=== PATIENT | female | born 1950 | race Caucasian/White ===

== ENCOUNTER 2017-01-20 08:11 | Inpatient (IN) | payer BC, OTHER ==
[2016-12-10 11:18] VITALS: BMI 42.0
--- NOTE | 2016-12-10 11:56 | PAT Medication Instructions ---
Service Date Dec 10, 2016. Current Home Medication List Atorvastatin (Lipitor), 10 MG PO QPM Beclomethasone Dipropionate (Qvar), 2 PUFFS BID Calcium/Vitamin D (Caltrate 600 Plus *), 1 TAB PO BID Exemestane (Aromasin), 25 MG PO QPM Ibuprofen (Ibuprofen), 400 MG PO Q4 PRN for Pain Rizatriptan Benzoate (Maxalt-Glove Machine Operator), 10 MG PO PRN Venlafaxine Hcl (Effexor), 75 MG PO BID Verapamil Sust Rel (Calan Sr Ext Rel), 240 MG PO BID Medication Instructions For Your Scheduled Surgery Ibuprofen (Ibuprofen), 400 MG PO Q4 PRN for Pain (check with surgeon for instructions) Exemestane (Aromasin), 25 MG PO QPM (check with surgeon/prescribing physician for instructions) - Hold the following medications the morning of surgery: Verapamil Sust Rel (Calan Sr Ext Rel), 240 MG PO BID Calcium/Vitamin D (Caltrate 600 Plus *), 1 TAB PO BID - Take the following medications the morning of surgery with a sip of water: Venlafaxine Hcl (Effexor), 75 MG PO BID Rizatriptan Benzoate (Maxalt-Glove Machine Operator), 10 MG PO PRN Beclomethasone Dipropionate (Qvar), 2 PUFFS BID - Hold the following medications as scheduled the night before surgery: Verapamil Sust Rel (Calan Sr Ext Rel), 240 MG PO BID - Take the following medications as scheduled the night before surgery: Venlafaxine Hcl (Effexor), 75 MG PO BID Rizatriptan Benzoate (Maxalt-Glove Machine Operator), 10 MG PO PRN Beclomethasone Dipropionate (Qvar), 2 PUFFS BID Atorvastatin (Lipitor), 10 MG PO QPM If you have any questions please call us at [phone] (Anny Carrero PA-C) or [phone] or [phone]
[2016-12-10 12:51] LABS: BASO % 0.2 %; BASO ABS # 0.02 K/uL (0-0.2); COMPLETE YES; EOS % 3.2 %; HEMATOCRIT 41.5 % (37-47); IG% 0.2 %; LYMPH % 20.8 %; LYMPH ABS # 1.68 K/uL (1.2-3.4); MEAN CELL VOLUME 88.7 fL (80-100); MEAN CORPUSCULAR HEMOGLOBIN 29.9 pg (25-34); MEAN CORPUSCULAR HGB CONC 33.7 g/dl (32-36); MEAN PLATELET VOLUME 9.3 fL (7.4-10.4); MONO % 8.9 %; NEUT % 66.7 %; PLATELET COUNT 456 K/uL (130-400); RED BLOOD COUNT 4.68 M/uL (4.2-5.4); WHITE BLOOD COUNT 8.07 K/uL (4.8-10.8)
--- NOTE | 2016-12-10 12:59 | DIAGNOSTIC IMAGING REPORT ---
TWO VIEW CHEST CLINICAL HISTORY: Preoperative examination. FINDINGS: PA and lateral chest radiographs are compared to study dated 01/23/15. The cardiomediastinal silhouette is unremarkable. There is chronic elevation of the left hemidiaphragm. The lungs and pleural spaces are clear. There is no pneumothorax. The skeletal structures are osteopenic. The bony thorax appears intact. Cholecystectomy clips are identified in the right upper quadrant. IMPRESSION: No active disease in the chest. Electronically signed by: Iraj Kasper M.D. 12/10/2016 12:57 PM Dictated Date/Time: 12/10/2016 12:56 PM
[2016-12-10 13:01] LABS: URINE APPEARANCE CLEAR (CLEAR); URINE BILIRUBIN NEG (NEG); URINE COLOR YELLOW; URINE EPITHELIAL CELL AUTO >30 /lpf (0-5); URINE NITRITE NEG (NEG); URINE SPECIFIC GRAVITY 1.012 (1.000-1.030); UROBILINOGEN NEG (NEG)
[2016-12-10 13:07] LABS: MANUAL MICROSCOPIC REQUIRED? NO; REVIEW REQ? YES
[2016-12-10 13:08] LABS: PROTHROMBIN TIME (PATIENT) 10.3 SECONDS (9.0-12.0)
[2016-12-10 13:43] LABS: CREATININE 0.64 mg/dl (0.60-1.20); POTASSIUM 3.8 mmol/L (3.5-5.1)
[2016-12-10 13:49] LABS: ZZUR CULT IF INDIC CLEAN CATCH YES
--- NOTE | 2016-12-14 18:46 | HISTORY & PHYSICAL EXAMINATION ---
DATE OF ADMISSION: 01/06/2017 CHIEF COMPLAINT: Left hip pain. HISTORY OF PRESENT ILLNESS: This is a 66-year-old white female, who presents to the office with complaints of left hip pain that has been ongoing for over a year. Pain has become worse over the last 4 months. She previously had a right total hip replacement 9 years ago. She elects to proceed with the same on the left. She has tried oral anti-inflammatories as well as cortisone injections and activity modification without improvement. X-rays have been obtained. She denies any numbness or tingling. PAST MEDICAL HISTORY: Significant for hypertension, elevated cholesterol, asthma, osteoarthritis, history of breast cancer, obesity, migraines and low back pain. PREVIOUS SURGERIES: Arthroplasty of the temporomandibular joint, history of breast reduction, x2, cholecystectomy, Lasik surgery, lumbar laminectomy, oral surgery, history of right total hip replacement 9 years ago and partial mastectomy of the right breast. ALLERGIES: KNOWN ALLERGY TO CODEINE WHICH CAUSES ITCHING. CURRENT MEDICATIONS: Arimidex 1 mg p.o. daily, atorvastatin 10 mg p.o. at bedtime, calcium daily, Celebrex 200 mg p.o. b.i.d., Effexor 75 mg 1-1/2 tablets p.o. b.i.d., Rizatriptan 10 mg p.o. daily and verapamil 240 mg p.o. b.i.d. FAMILY HISTORY: Significant for heart disease and hypertension. SOCIAL HISTORY: The patient is . No tobacco use, no ETOH use. REVIEW OF SYSTEMS: Significant for the above stated conditions, otherwise unremarkable. PHYSICAL EXAMINATION: GENERAL: Well-developed and well-nourished middle aged white female, in no acute distress, sitting on a bed. Alert and oriented. SKIN: Warm and dry with good turgor. No rashes or lesions. No ecchymosis or erythema. HEENT: Normocephalic, atraumatic. Eyes: PERRLA, EOMI. Nares; patent bilaterally without turbinate enlargement. Oropharynx; without erythema or exudate. No lesions noted. Uvula midline. Oral mucosa moist. Fair dentition. Partial bridges are noted. HEART: RRR. No MGR. LUNGS: Clear to auscultation bilaterally. No crackles, rhonchi or wheezing. Good air movement. ABDOMEN: Bowel sounds are present x4, soft, nontender. No organomegaly. Moderately obese. MUSCULOSKELETAL: Left hip has no obvious asymmetry or deformity. She has onset of pain with flexion at around 90 degrees. Essentially no internal rotation. She only gets to neutral before significant pain. External rotation around 20-25 degrees before onset of pain. No pain with palpation over the greater trochanter. She does have discomfort with palpation over the anterior flexion crease. Ambulatory with an antalgic gait. NEUROLOGIC: Gross sensation is intact across the upper and lower extremities by soft touch. Cranial nerves II-XII are intact. DATA: Radiographic images previously obtained show DJD of the left hip. She has significant joint space narrowing as well as subchondral sclerosis and spurring. No evidence of AVN. She does have a small cam lesion. IMPRESSION: Left hip end-stage degenerative joint disease. PLAN: Informed written consent was obtained to proceed with left total hip arthroplasty on 01/06/2017. Postoperative prescriptions for Percocet and Coumadin will be provided at discharge from the hospital. Anticipate discharge to home with home health services. Preoperative lab work, EKG and chest x-ray have been ordered. Medical clearance has been received from Dr. Haines.
--- NOTE | 2017-01-18 17:09 | HISTORY & PHYSICAL EXAMINATION ---
DATE OF ADMISSION: 01/20/2017 PREOPERATIVE HISTORY AND PHYSICAL CHIEF COMPLAINT: Left hip pain. HISTORY OF PRESENT ILLNESS: This 66-year-old white female presents for evaluation of her left hip. She has had left hip pain for over a year. It has become worse over the last 5 months. She previously had a right total hip replacement 9 years ago and elects to proceed with the same on the left. She has tried oral anti-inflammatories as well as cortisone injections and activity modification without improvement. X-rays have been obtained. No numbness or tingling. She was previously scheduled for January 06 but had to cancel secondary to heart issues with her mother. All of those have resolved. The patient is now scheduled for left total hip arthroplasty on 01/20/2017. PAST MEDICAL HISTORY: Significant for hypertension, elevated cholesterol, asthma, osteoarthritis, history of breast cancer, obesity, migraines, and low back pain. PREVIOUS SURGERIES: Arthroplasty of her temporomandibular joint, history of breast reduction, x2, cholecystectomy, Lasix surgery, lumbar laminectomy, oral surgery, history of right total hip replacement 9 years ago, partial mastectomy of the right breast. ALLERGIES: KNOWN ALLERGY TO CODEINE WHICH CAUSES ITCHING. CURRENT MEDICATIONS: Arimidex 1 mg p.o. daily, atorvastatin 10 mg p.o. at bedtime, calcium daily, Celebrex 200 mg p.o. b.i.d., Effexor 75 mg 1 1/2 p.o. b.i.d., Rizatriptan 10 mg p.o. daily, and verapamil 240 mg p.o. b.i.d. FAMILY HISTORY: Significant for heart disease and hypertension. SOCIAL HISTORY: No tobacco use, no ETOH use. . REVIEW OF SYSTEMS: Significant for above-stated conditions, otherwise unremarkable. PHYSICAL EXAMINATION: GENERAL: Well-developed, well-nourished middle aged white female in no acute distress. Sitting on a chair. Alert and oriented. SKIN: Warm and dry with good turgor. No rashes or lesions. No ecchymosis or erythema. HEENT: Normocephalic, atraumatic. Eyes PERRLA, EOMI. Oropharynx without erythema or exudate. No lesions noted. Uvula midline. Oral mucosa moist. Fair dentition. Partial bridges are noted. HEART: RRR. No MGR. LUNGS: Clear to auscultation bilaterally. No crackles, rhonchi or wheezing. Good air movement. ABDOMEN: Obese. Bowel sounds present x4, soft, nontender. No organomegaly. No masses. MUSCULOSKELETAL: Left hip has no obvious asymmetry or deformity. She has onset of pain with flexion of around 90 degrees. Essentially no internal rotation. She only gets to neutral. External rotation continues to be around 20-25 degrees. No pain with palpation over the greater trochanter. There is discomfort with palpation over the anterior flexion crease. Ambulatory with an antalgic gait. NEUROLOGIC: Gross sensation is intact across the upper and lower extremities by soft touch. Peripheral pulses are 2+. Cranial nerves II-XII are intact. IMPRESSION: Left hip end-stage degenerative joint disease. PLAN: Informed written consent was obtained to proceed with left total hip arthroplasty. Postoperative prescriptions for Percocet and Coumadin will be provided at discharge from the hospital. Anticipate discharge to home with home health services for 2 weeks. Lab work, EKG, and chest x-ray have been completed. Medical clearance has been received from Dr. Haines. SANCHEZ
[~2017-01-20] VITALS: Ht 157.5 cm; Wt 105.4 kg
[2017-01-20] VITALS (8 sets, daily range): BP systolic 118–159; BP diastolic 76–88; PULSE 92–102; TEMP 36.4–37.3; O2SAT 92–97; Ht 157.5 cm; Wt 105.4 kg
[~2017-01-20 08:11] MED LIST: ATOR10TA88 PO; BECL0.072; BUPIVACAINE 0.5 % 5 MG/1 ML PF 10ML VIAL ONE; CEFAZOLIN 2000 MG/60 ML D5W 60 ML IV SCH; CLTP PO; EFF/375 PO; EXM/25 PO; LACTATED RINGER'S 1000ML 1,000 ML IV SCH; LACTATED RINGER'S 1000ML 500 ML IV ONE; LACTATED RINGER'S 1000ML IV SCH; MTR/400 PO; RIZA10TA19 PO; ROPIVACAINE 5MG/ML 30 ML 150 MG, BUPIVACAINE/EPINEPHR 0.5% MPF 30 ML, KETOROLAC TROMETH... INFIL SCH; TRANEXAMIC ACID INJ 1,000 MG in SODIUM CHLORIDE 0.9% 100ML 100 ML IV SCH; VERA240T20 PO
--- NOTE | 2017-01-20 08:37 | History & Physical Bridge Note ---
H&P Re-Evaluation Bridge Note: I have examined the patient, reviewed the History & Physical and in the interval since the performance of the History & Physical I have noted the following changes of clinical significance: No changes noted
[2017-01-20] MEDS ORDERED: MIDAZOLAM HCL 1 MG/ML 2ML VIAL ONE (09:32)
[2017-01-20] MEDS ORDERED: FENTANYL CITRATE INJ 50 MCG/1 ML 2 ML VIAL ONE ×2 (09:32→12:18)
[2017-01-20] MEDS ORDERED: PROPOFOL IV EMULSION 10 MG/ML 20 ML VIAL IV ONE ×2 (09:33→11:47)
[2017-01-20] MEDS ORDERED: LIDOCAINE HCL 2% 2 ML VIAL (20MG/ML) ONE (09:33)
[2017-01-20] MEDS ORDERED: ONDANSETRON INJ 2 MG/ML 2 ML VIAL ONE (09:33)
[2017-01-20] MEDS ORDERED: ORTHO JOINT ANESTHETIC ONE (10:38)
[2017-01-20] MEDS ORDERED: POVIDONE-IODINE OP SOLN 30 ML BTL ONE (10:38)
[2017-01-20] MEDS ORDERED: FENTANYL CITRATE INJ 50 MCG/1 ML 2 ML VIAL IV PRN (11:30)
[2017-01-20] MEDS ORDERED: ATROPINE SULFATE 0.1 MG/ML 5ML SYR IV PRN (11:30)
[2017-01-20] MEDS ORDERED: HYDROmorphone INJ 1 MG/ML SYR IV PRN (11:30)
[2017-01-20] MEDS ORDERED: ONDANSETRON INJ 2 MG/ML 2 ML VIAL IV PRN ×2 (11:30→13:15)
[2017-01-20] MEDS ORDERED: EpHEDrine SULFATE INJ 50 MG/ML AMP IV PRN (11:30)
[2017-01-20] MEDS ORDERED: PROMETHAZINE HCL INJ 6.25 MG in SODIUM CHLORIDE 0.9% 50ML 50 ML IV PRN (11:30)
[2017-01-20] MEDS ORDERED: PHENYLEPHRINE 100MCG/ML 5ML SYR ONE (11:32)
[2017-01-20] MEDS ORDERED: PHENYLEPHRINE HCL INJ 10 MG/ML VIAL ONE (11:42)
--- NOTE | 2017-01-20 12:57 | [facility] Post Operative Brief Note ---
Immediate Operative Summary Operative Date Jan 20, 2017. Pre-Operative Diagnosis Left hip end-stage degenerative joint disease Post-Operative Diagnosis Same as preoperative diagnosis Procedure(s) Performed Left Total Hip Arthroplasty, Uncemented Surgeon Dr. Omar Ugarte Babbitt Spinner Surgeon(s) Evert Still PA-C Estimated Blood Loss 250 mL Findings djd/torn labrum Fluids (cc crystalloids) 1200cc Specimens Permanent specimens A: Left femoral head Drains none Anesthesia spinal Complication(s) None Disposition Recovery Room / PACU
--- NOTE | 2017-01-20 13:10 | OPERATIVE REPORT ---
DATE OF OPERATION: 01/20/2017 SURGEON: Dr. Ugarte. POLE SETTER: Evert Still PA-C. SECOND POLE SETTER: Liliane, medical student. PREOPERATIVE DIAGNOSIS: Osteoarthritis, left hip. POSTOPERATIVE DIAGNOSIS: Same. OPERATION PERFORMED: Noncemented left total hip replacement. PERIOPERATIVE SITUATION: Medically cleared female with intractable hip pain, had the previous side done years ago and now wants to have this side done. X-rays reveal joint space narrowing, periarticular Cam lesion and labral tear. An MRI scan revealed substantial joint space narrowing and marked degenerative change. SUMMARY OF IMPLANTS: Size 48 acetabular shell sector cup hole eliminator, 6.5 x 30 cancellous screw, 32 x 48 neutral liner, size 3 standard stem and a 32 mm head +9 neck length. DESCRIPTION OF PROCEDURE: The patient appropriately identified, site verified, consent verified, 3 grams of Ancef confirmed as being given. The patient was carefully placed in the right lateral decubitus position and the left lower extremity prepped and draped in usual routine fashion. Due to her size an appropriate incision was made, deep retractors placed in the subcutaneous tissue and fascia identified. This was then incised under direct vision. Care was taken to protect the sciatic nerve, deep retractors placed appropriately, short external rotators released. The capsule was then teed, the hip dislocated. The femoral neck resected. It was then inverted labrum anteriorly, marked degenerative changes throughout the hip joint. Labrum was excised. Serial reaming carried up to a 48 and a 48 cup impacted into position with appropriate anteversion and inclination. Marginal osteophytes excised and additional 6.5 x 30 screw placed with excellent purchase. The trial liner seated. The femur was then flexed and internally rotated. The proximal femur delivered in the wound and beginning with a canal finder, lateralizing rasp, box office agent and serial broaching up to a 3, a 3 was placed and the neck lengths were between a +5 and a +9, a +9 appeared to be more appropriate and balanced the leg lengths. The hip stability was actually quite good. The hip was then dislocated. The trial implants were removed. The wound was irrigated with Betadine Pulsavac. The permanent hole eliminator and permanent liner seated, permanent stem seated, one more trial reduction carried out and the +9 was appropriate. The wound was irrigated with Betadine and a +9 head placed. The hip reduced. The wound was irrigated one final time and the capsule closed with #2 Vicryl, short external rotators with #2 Vicryl, the deep fascia with interrupted #2 Vicryl and the subcutaneous layer deep with #2 Vicryl, the superficial layer with 2-0 Vicryl and the skin with stainless steel clips. Appropriate dressing applied and the patient transferred to recovery room in satisfactory condition having tolerated the procedure well. Estimated blood loss 250 mL. Crystalloid approximately 1200 mL. DVT prophylaxis per protocol. I attest to the content of the Intraoperative Record and any orders documented therein. Any exceptio ns are noted below.
[2017-01-20] MEDS ORDERED: ACETAMINOPHEN 325 MG TAB PO PRN (13:15)
[2017-01-20] MEDS ORDERED: MAGNESIUM HYDROXIDE SUSP 30 ML UDC PO PRN (13:15)
[2017-01-20] MEDS ORDERED: DiphenhydrAMINE HCL 50 MG/ML VIAL IV PRN (13:15)
[2017-01-20] MEDS ORDERED: BISACODYL 10 MG SUPP PR PRN (13:15)
[2017-01-20] MEDS ORDERED: MoRPHine SULFATE 2 MG/ML CARP IV PRN (13:15)
[2017-01-20] MEDS ORDERED: OXYCODONE HCL IR 5 MG TAB (IMMEDIATE RELEASE) PO PRN (13:15)
[2017-01-20] MEDS ORDERED: METOCLOPRAMIDE HCL INJ 5 MG/ML 2 ML VIAL IV PRN (13:15)
[2017-01-20] MEDS ORDERED: ALUMINUM/MAGNESIUM/SIMETH (MAALOX MAX) 30 ML UDC PO PRN (13:15)
--- NOTE | 2017-01-20 13:28 | OPERATIVE REPORT ---
DATE OF OPERATION: 01/20/2017 PREOPERATIVE DIAGNOSIS: Left hip end-stage degenerative joint disease. POSTOPERATIVE DIAGNOSIS: Same. PROCEDURE: Left total hip arthroplasty using DePuy implants. SURGEON: Dr. Ugarte. CAR JOCKEY: Evert Still PA-C. HISTORY OF PRESENT ILLNESS: This 66-year-old white female presented to the office with complaints of intractable left hip pain. She had tried conservative care measures including physical therapy, activity modification, oral pain medications, and intra-articular injection without lasting relief. She elected to proceed with surgical intervention in hopes of alleviating her pain. Preoperative x-rays were obtained. OPERATION: The patient was administered a spinal anesthetic and then taken to the operating room where she was given sedation. She was prepped and draped in the usual sterile fashion. Please see Dr. Ugarte's operative report for specifics of the procedure. I was present for the entire case from initial patient positioning through final wound closure. Assistance was provided in tissue retraction, hemostasis, trial implant placement, final implant placement, and final wound closure. The patient was taken to the recovery room in satisfactory condition. I attest to the content of the Intraoperative Record and any orders documented therein. Any exceptio ns are noted below.
--- NOTE | 2017-01-20 13:41 | Anesthesiology Progress Note ---
Anesthesia Post Op Note Date & Time Jan 20, 2017 at 13:41 Vital Signs Pain Intensity: 0 Vital Signs Past 12 Hours Date Time Temp Pulse Resp B/P Pulse Ox O2 Delivery O2 Flow Rate FiO2 01/20/17 13:15 94 16 126/91 98 Nasal Cannula 2 01/20/17 13:05 89 16 136/66 98 Mask 10 01/20/17 12:58 36.9 93 16 138/78 98 Mask 10 01/20/17 08:38 36.9 102 22 159/82 95 Room Air Notes Mental Status: alert / awake / arousable, participated in evaluation Pt Amnestic to Procedure: Yes Nausea / Vomiting: adequately controlled Pain: adequately controlled Airway Patency, RR, SpO2: stable & adequate BP & HR: stable & adequate Hydration State: stable & adequate Neuraxial Anesthesia: was administered, sensory block is resolving Anesthetic Complications: no major complications apparent
--- NOTE | 2017-01-20 13:45 | PROGRESS NOTE ---
DATE: 01/20/2017 SUBJECTIVE: Postop check status post left total hip replacement. At this point in time the patient has no chest pain, shortness of breath, fevers, chills, nausea, vomiting or headache. Vital signs are stable. She is afebrile. The femoral sciatic nerve function is excellent. Wound dressing clean, dry and intact. X-ray is pending. ASSESSMENT: Overall, doing well. Continue with care pathway, transfer to the floor relatively quickly as she is doing well. Neurovascular check and vital signs.
--- NOTE | 2017-01-20 13:50 | PROGRESS NOTE ---
DATE: 01/20/2017 Postop x-ray look excellent, AP pelvis and hips reveals well fixed, well aligned hip replacement on the left and no issues with the hip replacement on the right.
--- NOTE | 2017-01-20 13:56 | DIAGNOSTIC IMAGING REPORT ---
PELVIS 1 OR 2 VIEW ROUTINE CLINICAL HISTORY: Postop total hip arthroplasty COMPARISON STUDY: 05/16/2014 FINDINGS: Again evident is evidence of a prior total right hip arthroplasty. There is now evidence for total left hip arthroplasty. The acetabular and femoral components appear well seated. There is air in the soft tissues consistent with recent surgery. There are no acute fractures. There is no dislocation. IMPRESSION: Interval total left hip arthroplasty. Electronically signed by: Dayne Hinkle M.D. 01/20/2017 1:55 PM Dictated Date/Time: 01/20/2017 1:54 PM
[2017-01-20] MEDS ORDERED: RIZATRIPTAN BENZOATE 10 MG TAB PO PRN (15:15)
[2017-01-20] MEDS ORDERED: MoRPHine SULFATE 4 MG/ML 1 ML CARP\\VIAL IV PRN (15:15)
[2017-01-20] MEDS ORDERED: D5W AND 1/2NSS + 20MEQ KCL 1,000 ML IV SCH (16:00)
[2017-01-20] MEDS ORDERED: WARF2TAB PO (16:01)
[2017-01-20] MEDS ORDERED: OXYC-57 PO (16:01)
[2017-01-20] MEDS: ACETAMINOPHEN IV 1,000 MG in EMPTY BAG 0 ML IV SCH ×2 (16:26→23:48)
[2017-01-20] MEDS: KETOROLAC TROMETHAMINE 30 MG/ML VIAL IV. SCH ×2 (16:27→22:05)
[2017-01-20] MEDS ORDERED: WARFARIN SOD 5 MG TAB PO ONE (17:00)
[2017-01-20] MEDS: FERROUS GLUCONATE 324 MG TAB PO SCH (17:14)
[2017-01-20] MEDS: CEFAZOLIN IV 2,000 MG in DEXTROSE 5% 50ML 50 ML IV SCH (17:19)
[2017-01-20] MEDS ORDERED: TRANEXAMIC ACID INJ 1,000 MG in SODIUM CHLORIDE 0.9% 100ML 100 ML IV SCH (19:30)
[2017-01-20] MEDS: BECLOMETHASONE HFA 40 MCG INHALER INH SCH (20:48)
[2017-01-20] MEDS: VERAPAMIL HCL 240 MG TABCR PO SCH (20:48)
[2017-01-20] MEDS: DOCUSATE SODIUM 100 MG CAP PO SCH (20:49)
[2017-01-20] MEDS: VENLAFAXINE HCL 37.5 MG TAB PO SCH (20:51)
[2017-01-20] MEDS ORDERED: ATORVASTATIN 10 MG TAB PO SCH (21:00)
[2017-01-21] MEDS: CEFAZOLIN IV 2,000 MG in DEXTROSE 5% 50ML 50 ML IV SCH (01:56)
[2017-01-21] MEDS: KETOROLAC TROMETHAMINE 30 MG/ML VIAL IV. SCH ×2 (03:00→11:05)
[2017-01-21 03:15] VITALS: BP 132/88; PULSE 91; TEMP 36.4; O2SAT 93
--- NOTE | 2017-01-21 07:07 | PROGRESS NOTE ---
DATE: 01/21/2017 SUBJECTIVE: Postop day 1 status post left total hip replacement. At this point in time the patient denies any chest pain, shortness of breath, fevers, chills, headache, nausea or vomiting. Vital signs are stable. She is afebrile. She has been tachycardic the entire time, that is her I think her baseline. Her admission pulse was in the low 100s. Abdomen soft, nontender. Both calves nontender. Neurovascular check femoral and sciatic nerve is excellent. Hip movement is excellent. She is ambulatory. Laboratory work this morning is pending. ASSESSMENT: Overall, doing well. Potential discharge later this afternoon if she does well with PT, OT. Discharge on 4 mg of Coumadin today if INR is less than 1.4. Check INR on Wednesday. Did give her prescriptions for pain medication. Follow up in the office in 2 weeks. PT, OT, social service consults.
--- NOTE | 2017-01-21 07:10 | DISCHARGE SUMMARY ---
POTENTIAL DATE OF DISCHARGE: 01/21/2017; if not it will be 01/22/2017 CHIEF COMPLAINT: Left hip pain. HISTORY OF PRESENT ILLNESS: 66-year-old female admitted for elective left total hip replacement. At this point in time she has done well perioperatively. She denies chest pain, shortness of breath, fever or chills, headache, nausea or vomiting. Vital signs are stable. She is afebrile. PAST MEDICAL HISTORY: Remarkable for hypertension, elevated cholesterol, asthma, osteoarthritis, history of breast cancer, obesity, migraines and low back pain. PAST SURGICAL HISTORY: TMJ surgery, breast reduction, x2, cholecystectomy, Lasik surgery, lumbar laminectomy, oral surgery, right total hip replacement nine years ago, partial mastectomy of the right breast. ALLERGIES: CODEINE WHICH CAUSES ITCHING. PREADMISSION MEDICATIONS: Arimidex, atorvastatin, calcium, Celebrex, Effexor, rizatriptan and verapamil. She will discontinue Celebrex. Continue all of the other medications. Will add p.r.n. Percocet and Coumadin. Discharge on 4 mg today if INR less than 1.4 and adjust as needed to keep INR 1.8-2.2. FAMILY HISTORY: Remarkable for heart disease and hypertension. SOCIAL HISTORY: She is . Denies alcohol or tobacco use. REVIEW OF SYSTEMS: No chest pain, shortness of breath, fever or chills. ASSESSMENT: Overall, doing well and was mobilizing well. She is a little hesitant to leave today; however, if she does well with PT, OT today she will try to do that. She will have PT, OT and social service assessments. If she does well, she will be discharged today. Follow up in the office in 2 weeks. Coumadin per INR nomogram today and if she is discharged again discharge on 4 mg a day if INR is less than 1.4.
[2017-01-21 07:16] LABS: BASO % 0.1 %; BASO ABS # 0.01 K/uL (0-0.2); COMPLETE YES; HEMATOCRIT 36.1 % (37-47); IG% 0.1 %; LYMPH % 8.2 %; LYMPH ABS # 0.98 K/uL (1.2-3.4); MEAN CELL VOLUME 90.7 fL (80-100); MEAN CORPUSCULAR HEMOGLOBIN 30.2 pg (25-34); MEAN CORPUSCULAR HGB CONC 33.2 g/dl (32-36); MEAN PLATELET VOLUME 9.5 fL (7.4-10.4); MONO % 11.4 %; NEUT % 80.2 %; PLATELET COUNT 346 K/uL (130-400); RED BLOOD COUNT 3.98 M/uL (4.2-5.4); WHITE BLOOD COUNT 12.01 K/uL (4.8-10.8)
[2017-01-21 07:18] VITALS: BP 128/77; PULSE 86; TEMP 36.7; O2SAT 95
[2017-01-21 07:25] LABS: PROTHROMBIN TIME (PATIENT) 10.7 SECONDS (9.0-12.0)
[2017-01-21] MEDS ORDERED: DEXAMETHASONE INJ 10 MG in SYRINGE 0 ML IV SCH (07:30)
[2017-01-21] MEDS: ACETAMINOPHEN IV 1,000 MG in EMPTY BAG 0 ML IV SCH (07:36)
[2017-01-21 07:47] LABS: BUN/CREATININE RATIO 20.5 (10-20); CALCIUM 8.4 mg/dl (8.5-10.1); CREATININE 0.78 mg/dl (0.60-1.20); POTASSIUM 4.2 mmol/L (3.5-5.1)
--- NOTE | 2017-01-21 07:47 | Anesthesiology Progress Note ---
Anesthesia Post Op Note Date & Time Jan 21, 2017 at 07:47 Vital Signs Vital Signs Past 12 Hours Date Time Temp Pulse Resp B/P Pulse Ox O2 Delivery O2 Flow Rate FiO2 01/21/17 07:18 36.7 86 16 128/77 95 Room Air 01/21/17 03:15 36.4 91 16 132/88 93 Room Air 01/20/17 23:41 36.7 101 18 118/76 96 Room Air 01/20/17 19:54 36.9 101 18 118/77 93 Room Air Notes Mental Status: alert / awake / arousable, participated in evaluation Pt Amnestic to Procedure: Yes Nausea / Vomiting: adequately controlled Pain: adequately controlled Airway Patency, RR, SpO2: stable & adequate BP & HR: stable & adequate Hydration State: stable & adequate Neuraxial Anesthesia: was administered, sensory block resolved Anesthetic Complications: no major complications apparent
--- NOTE | 2017-01-21 08:53 | Discharge Instructions ---
Discharge Instructions Admission Reason for Admission: Left Hip Degenerative Joint Disease Discharge Discharge Diagnosis / Problem: left hip s/p total hip replacement Discharge Goals Goal(s): Decrease discomfort, Improve function, Increase independence Activity Recommendations Activity Limitations: as noted below Lifting Limitations: gradually increase as tolerated Exercise/Sports Limitations: until after follow-up appointment Shower/Bathe: keep incision dry Driving or Machine Use: No driving until cleared by Dr. Ugarte Weightbearing Status: Left weightbearing (as tolerated) . Instructions / Follow-Up Instructions / Follow-Up New Medicine: * You will likely be taking one or more of these medicines: 1. Percocet - Take, as directed, when you need it, every four to six hours to control your pain. 2. Coumadin - Thins your blood to lessen the chance of forming a blood clot. The dose of this is different for each person and is based on your blood tests that are done twice a week. * The most common side effects of pain medicine and iron are nausea and constipation. If nausea or constipation is too much of a problem or if you have any questions about your new medicines or doses, call [facility] at . We will try to help you manage these issues. VERY IMPORTANT TO READ AND REVIEW" Blood Clots and Blood Thinning Medicine: * You are given Coumadin during the immediate post-operative period to lessen the risk of blood clots forming in your legs and/or lungs. Coumadin is usually given for six weeks after surgery. * The prescription is for 2 mg tablets. At discharge, you should understand your dose and take it all at the same time every day, preferably after dinner. * You need to get your blood checked 1 - 2 times per week for six weeks, or as directed. * If your dose needs to change, we will call you. Do not take your medication on the day of the blood test until we call you. * If you don't hear from us after your blood draws, keep taking the same dose. Pain: * The immediate post-operative period after hip replacement surgery is often quite painful. * You are given a prescription for pain medicine. You should take it, as directed, when you need it, especially before physical therapy and before going to bed. Pain that interferes with sleep is very common and can last several months. * You will likely need pain medicine for the first two to four weeks. It will not stop all of the pain. The pain will lessen and as you feel better, you may change to milder pain medicine such as Tylenol. * The most common side effects of pain medicine are nausea and constipation, so don't take more than you need. Physical Therapy: * Follow the "Hip Precautions Instructions." * In some cases, the social worker clinical at the hospital will arrange to have a therapist come to your house for the first couple of weeks to help you learn these skills. * You need to practice on your own or with the help of a family member as needed. * When you learn these skills, most of the therapy can be done on your own. Home Exercise: * You were shown a series of exercises in the hospital. Do these exercises three to four times each day including the exercises you were shown in physical therapy. Walking: * Get up and walk several times each day. For the first four weeks, try not to stand or walk for more than one hour at a time. If you do stand or walk for more than one hour, you will not hurt anything, but your leg will likely swell. * As you feel comfortable, you may change from the walker or crutches to a cane and then to independent walking. SELF CARE INSTRUCTIONS AFTER TOTAL HIP REPLACEMENT Until the incision and soft tissues around your hip have healed, there is a possibility that the hip prosthesis could dislocate. A. Observe the following precautions to prevent dislocation: 1. Don't bend your hip greater than 90 degrees. 2. Avoid crossing your legs or ankles while standing or lying. 3. Sit with your feet placed 6 inches apart. 4. When sitting, keep your knees below your hips. Sit on a firm surface, avoid deep, soft chairs and couches. Use an elevated toilet seat in the bathroom. 5. Don't bend over at the waist. Use a long handled shoehorn and a sock aid to help you put on your shoes and socks. A cloth doffer can help you picking tech objects that are too high or too low to reach. 6. Keep car riding to a minimum for at least one month after surgery. B. Your balance may be shaky for a while. Use crutches or a walker until directed by your doctor. C. Use hand rails when walking on stairs. D. Wear low heeled shoes with non-slip soles. E. Be sure that your floors are free of things that could trip you - throw rugs , electrical cords, small objects. Avoid wet and waxed floors, especially with crutches and canes. F. Try to walk several times a day with rest periods between. G. Continue with all the exercises taught to you in the hospital. Again, make walking a part of your daily routine. VERY IMPORTANT TO READ AND REVIEW A. Take Coumadin, or Lovenox (blood thinning medications) as directed by your doctor. If you are on Coumadin, have a pro-time (blood test) drawn according to your doctor's instructions. This will tell the doctor how well the Coumadin is thinning your blood. B. There are a few signs you need to watch for after you are home. If you notice any of the followin. Increased severe hip pain. Some pain is expected especially when you exercise. 2. Increased swelling in your leg or knee; pain or swelling of the calf muscle in either lower leg. 3. Any fluid drainage from the incision. 4. Shortness of breath or chest pain. TEDs/Elastic Stockings: * The white elastic stockings help limit swelling and prevent blood clots from forming in your legs. The more you wear them, the more they work. * Wear them for six weeks. Prevention of Infection: * Take antibiotics one hour before any dental cleaning, dental work, urological procedure, gastrointestinal procedure or any invasive surgery in order to prevent your new joint from getting infected. * You may get the antibiotics from the doctor performing the procedure or we will call in a prescription to the pharmacy of your choice. Call the office for a prescription at least 2 days prior to your appointment. Things to Watch For: * Drainage from the incision site that occurs more than one week after your surgery. * Severely increased leg pain or swelling. * Increased redness at the incision site. * Fever above 101 degrees Fahrenheit. * Unusual chest pain or shortness of breath. * Unusual pain or burning with urination. Current Hospital Diet Patient's current hospital diet: AHA Diet (Heart Healthy) Discharge Diet Recommended Diet: AHA Diet (Heart Healthy) Procedures Procedures Performed: Left Total Hip Arthroplasty, Uncemented Pending Studies Studies pending at discharge: no Laboratory Results Lipid Panel Test 10/30/16 09:41 Range/Units Triglycerides Level 169 H 0-150 mg/dl Cholesterol Level 198 0-200 mg/dl HDL Cholesterol 80 mg/dl Cholesterol/HDL Ratio 2.5 LDL Cholesterol, Calculated 84 mg/dl Medical Emergencies . Who to Call and When: Medical Emergencies: If at any time you feel your situation is an emergency, please call 911 immediately. . Non-Emergent Contact Non-Emergency issues call your: Primary Care Provider, Surgeon Call Non-Emergent contact if: temperature is above 100.5, wound has increased drainage, wound has increased redness, wound has increased pain, you have any medication questions . "Provider Documentation" section prepared by Evert Still PA-C. VTE Core Measure Inpt VTE Proph given/why not?: Warfarin (Coumadin), Alex Stockings, SCD's [place] Drug Monitoring Program Search Results: patient reviewed within database
[2017-01-21] MEDS ORDERED: MULTIVITAMIN TAB PO SCH (09:00)
[2017-01-21] MEDS ORDERED: PANTOprazole SOD 40 MG TAB PO SCH (09:00)
--- NOTE | 2017-01-21 09:25 | Orthopedic Progress Note ---
Orthopedic Progress Note Date of Service Jan 21, 2017. Subjective Post OP Day: 1 Reports: feeling well, Denies: SOB, calf pain, chest pain, complaints, light headedness, nausea / vomiting Objective calves soft nontender, N/V intact, hip located, capillary refill less than 2 sec., dressing C/D/I, incision C/D/I, A&O x3, toes mobile, CMS intact minimal drainage on dressings sitting in a chair, stands well Date Time Temp Pulse Resp B/P Pulse Ox O2 Delivery O2 Flow Rate FiO2 01/21/17 07:18 36.7 86 16 128/77 95 Room Air 01/21/17 03:15 36.4 91 16 132/88 93 Room Air 01/20/17 23:41 36.7 101 18 118/76 96 Room Air 01/20/17 19:54 36.9 101 18 118/77 93 Room Air 01/20/17 19:35 93 Room Air 01/20/17 16:46 37.3 100 18 122/78 95 Nasal Cannula 1.0 01/20/17 16:08 Nasal Cannula 2.0 01/20/17 15:45 36.6 97 16 130/82 97 Nasal Cannula 2.0 01/20/17 14:32 92 19 137/88 92 Nasal Cannula 2.0 01/20/17 14:14 Nasal Cannula 2.0 01/20/17 13:45 36.4 92 16 142/85 97 Nasal Cannula 2.0 01/20/17 13:15 94 16 126/91 98 Nasal Cannula 2 01/20/17 13:05 89 16 136/66 98 Mask 10 01/20/17 12:58 36.9 93 16 138/78 98 Mask 10 Laboratory Results 24 Hours: Test 01/21/17 06:32 White Blood Count 12.01 K/uL Red Blood Count 3.98 M/uL Hemoglobin 12.0 g/dL Hematocrit 36.1 % Mean Corpuscular Volume 90.7 fL Mean Corpuscular Hemoglobin 30.2 pg Mean Corpuscular Hemoglobin Concent 33.2 g/dl Platelet Count 346 K/uL Mean Platelet Volume 9.5 fL Neutrophils (%) (Auto) 80.2 % Lymphocytes (%) (Auto) 8.2 % Monocytes (%) (Auto) 11.4 % Eosinophils (%) (Auto) 0.0 % Basophils (%) (Auto) 0.1 % Neutrophils # (Auto) 9.64 K/uL Lymphocytes # (Auto) 0.98 K/uL Monocytes # (Auto) 1.37 K/uL Eosinophils # (Auto) 0.00 K/uL Basophils # (Auto) 0.01 K/uL Prothromb Time International Ratio 1.0 Prothrombin Time 10.7 SECONDS Assessment & Plan Assessment: Left hip s/p total hip arthroplasty Plan: PT/OT today dressing changed by me today- wound looks good continue total hip precautions pt anticipates discharge to home today vitals and labs reviewed-no concerns Discharge Planning Discharge Planning: home with home health Pain Management: Percocet DVT Prophylaxis: TEDs, SCDs, Coumadin
[2017-01-21] MEDS: FERROUS GLUCONATE 324 MG TAB PO SCH ×2 (09:31→12:49)
[2017-01-21] MEDS: DOCUSATE SODIUM 100 MG CAP PO SCH (09:32)
[2017-01-21] MEDS: VENLAFAXINE HCL 37.5 MG TAB PO SCH (09:34)
[2017-01-21] MEDS: BECLOMETHASONE HFA 40 MCG INHALER INH SCH (09:35)
[2017-01-21 09:37] VITALS: BP 121/80; PULSE 99
[2017-01-21] MEDS: VERAPAMIL HCL 240 MG TABCR PO SCH (09:38)
[2017-01-21 11:55] VITALS: BP 145/92; PULSE 92; TEMP 37; O2SAT 93
[2017-01-21] MEDS ORDERED: WARFARIN SOD 5 MG TAB PO SCH (16:00)
== END 2017-01-21 13:15 | disposition home health service (06) | DRG 470 ==
LOC: ENRESERVDT → ENRESERVTM → C.ACU 08:11 → C.3E 08:40
PROVIDERS: ADMIT Physical Medicine & Rehabilitation Sports Medicine; ATTEND Physical Medicine & Rehabilitation Sports Medicine
PROC: 0SRB0JA Replacement of Left Hip Joint with Synthetic Substitute, Uncemented, Open Approach (ICD-10-PCS; principal; 2017-01-20 10:30)
DX: M16.12 Unilateral primary osteoarthritis, left hip (principal); Z68.41 Body mass index [BMI] 40.0-44.9, adult; I10 Essential (primary) hypertension; E78.00 Pure hypercholesterolemia, unspecified; J45.909 Unspecified asthma, uncomplicated; M19.90 Unspecified osteoarthritis, unspecified site; Z85.3 Personal history of malignant neoplasm of breast; G43.909 Migraine, unspecified, not intractable, without status migrainosus; Z88.5 Allergy status to narcotic agent; Z79.899 Other long term (current) drug therapy; Z96.641 Presence of right artificial hip joint; Z90.49 Acquired absence of other specified parts of digestive tract; Z90.11 Acquired absence of right breast and nipple; E66.9 Obesity, unspecified; Z82.49 Family history of ischemic heart disease and other diseases of the circulatory system

== ENCOUNTER → 2017-01-25 | Outpatient (CLI) | payer OTHER ==
[~2017-01-25] MED LIST changes: -BUPIVACAINE 0.5 % 5 MG/1 ML PF 10ML VIAL ONE; -CEFAZOLIN 2000 MG/60 ML D5W 60 ML IV SCH; -LACTATED RINGER'S 1000ML 1,000 ML IV SCH; -LACTATED RINGER'S 1000ML 500 ML IV ONE; -LACTATED RINGER'S 1000ML IV SCH; -MTR/400 PO; +OXYC-57 PO; -ROPIVACAINE 5MG/ML 30 ML 150 MG, BUPIVACAINE/EPINEPHR 0.5% MPF 30 ML, KETOROLAC TROMETH... INFIL SCH; -TRANEXAMIC ACID INJ 1,000 MG in SODIUM CHLORIDE 0.9% 100ML 100 ML IV SCH; +WARF2TAB PO
[2017-01-25 14:12] LABS: INR 1.2 (0.9-1.1); PROTHROMBIN TIME (PATIENT) 12.4 SECONDS (9.0-12.0)
== END | disposition home or self-care (01) ==
LOC: C.LABSPEC 13:35
PROVIDERS: ATTEND Physical Medicine & Rehabilitation Sports Medicine
DX: Z79.01 Long term (current) use of anticoagulants (principal)

== ENCOUNTER → 2017-01-28 | Outpatient (CLI) | payer OTHER ==
[2017-01-28 10:14] LABS: PROTHROMBIN TIME (PATIENT) 21.9 SECONDS (9.0-12.0)
--- NOTE | 2017-01-30 11:35 | CODING QUERY NO DIAGNOSIS ---
Valid Physician Order Needed A valid physician order must be submitted in order to properly bill for the service(s) provided, including date of service(s), valid diagnosis, and physician signature. If these tests are done on a recurring basis the original physican order must be submitted in order to code and bill for the service(s) provided. Please fax us the original, signed physician order so that we may expedite billing to [phone] DOS 01/28/17 * PT/INR ORDERED BY DR. SPENCE Thank you [facility] Information Management
--- NOTE | 2017-02-27 06:36 | CODING QUERY NO DIAGNOSIS ---
TREATMENT RENDERED WITHOUT A DIAGNOSIS To promote full compliance with coding requirements relating to patient care, physician participation is requested in all cases of pass worker uncertainty. Please assist us with providing a diagnosis/symptom for the test(s) below: A diagnosis/symptom was not documented on your Order. A valid diagnosis/symptom is required to bill all insurances. Please remember that we are unable to code a diagnosis of rule out, probable, possible, questionable, or suspected. Tests that require a diagnosis: DOS: 01/28/17 * PT/INR DIAGNOSIS: Provider Signature: Date: Thank you [facility] Information Management Once completed, please kindly fax back to [phone] For questions please call [phone]
== END | disposition home or self-care (01) ==
LOC: C.LABSPEC 09:34
PROVIDERS: ATTEND Physical Medicine & Rehabilitation Sports Medicine
DX: Z51.81 Encounter for therapeutic drug level monitoring (principal); Z79.01 Long term (current) use of anticoagulants; Z47.1 Aftercare following joint replacement surgery; Z96.643 Presence of artificial hip joint, bilateral

== ENCOUNTER → 2017-03-01 | Outpatient (CLI) | payer OTHER ==
[~2017-03-01] MED LIST changes: +ATOR10TA82 PO; -ATOR10TA88 PO
== END | disposition home or self-care (01) ==
LOC: C.RDSM 14:24
PROVIDERS: ATTEND Physical Medicine & Rehabilitation Sports Medicine
DX: M25.552 Pain in left hip (principal)

== ENCOUNTER → 2017-04-30 | Outpatient (CLI) | payer OTHER ==
[2017-04-30 12:31] LABS: BASO % 0.3 %; BASO ABS # 0.02 K/uL (0-0.2); COMPLETE YES; EOS % 4.3 %; HEMATOCRIT 45.8 % (37-47); IG% 0.1 %; LYMPH % 25.2 %; LYMPH ABS # 1.76 K/uL (1.2-3.4); MEAN CELL VOLUME 88.2 fL (80-100); MEAN CORPUSCULAR HEMOGLOBIN 27.9 pg (25-34); MEAN CORPUSCULAR HGB CONC 31.7 g/dl (32-36); MONO % 9.5 %; NEUT % 60.6 %; PLATELET COUNT 395 K/uL (130-400); RED BLOOD COUNT 5.19 M/uL (4.2-5.4); WHITE BLOOD COUNT 6.98 K/uL (4.8-10.8)
[2017-04-30 13:18] LABS: ALT/SGPT 32 U/L (12-78); BLOOD UREA NITROGEN 13 mg/dl (7-18); BUN/CREATININE RATIO 16.9 (10-20); CARBON DIOXIDE 28 mmol/L (21-32); CHLORIDE 106 mmol/L (98-107); CHOLESTEROL 215 mg/dl (0-200); CREATININE 0.78 mg/dl (0.60-1.20); GLUCOSE 131 mg/dl (70-99); POTASSIUM 4.3 mmol/L (3.5-5.1); SODIUM 143 mmol/L (136-145); TRIGLYCERIDES 306 mg/dl (0-150); VERY LOW DENSITY LIPOPROT CALC 61 mg/dl
[2017-04-30 13:22] LABS: ALB/GLOB RATIO 0.9 (0.9-2); ALKALINE PHOSPHATASE 120 U/L (45-117); AST/SGOT 18 U/L (15-37); CHOLESTEROL/HDL RATIO 2.9; HDL CHOLESTEROL 75 mg/dl; LDL CHOLESTEROL CALCULATED 79 mg/dl
[2017-04-30 13:32] LABS: CALCIUM 9.5 mg/dl (8.5-10.1)
== END | disposition home or self-care (01) ==
LOC: C.LABPVFM 08:55
PROVIDERS: ATTEND Internal Medicine Pulmonary Disease
DX: I10 Essential (primary) hypertension (principal); J45.909 Unspecified asthma, uncomplicated; M15.9 Polyosteoarthritis, unspecified

== ENCOUNTER → 2017-07-14 | Outpatient (CLI) | payer BC ==
[~2017-07-14] MED LIST changes: -ATOR10TA82 PO; +ATOR10TA88 PO
[2017-07-14 13:48] VITALS: BP 135/84; PULSE 104; TEMP 36.5; O2SAT 96
--- NOTE | 2017-07-14 15:27 | Radiation Oncology Follow-Up ---
Radiation Oncology Follow-Up Date of Visit Jul 14, 2017. 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 She has noted no masses of the breast. She has occasional tenderness if there is axillary bumped her touched. She is followed by medical oncology and breast surgery at [place]. She tries to alternate these visits. She is up-to-date on mammography. She continues to have hot flashes. She does have arthralgias. Allergies Coded Allergies: Codeine (Verified Allergy, Intermediate, pruritis, 01/20/17) Home Medications Scheduled Atorvastatin (Lipitor), 10 MG PO QPM Beclomethasone Dipropionate (Qvar), 2 PUFFS BID Calcium/Vitamin D (Caltrate 600 Plus *), 1 TAB PO BID Rizatriptan Benzoate (Maxalt-[place]), 10 MG PO PRN Venlafaxine Hcl (Effexor), 112.5 MG PO BID Verapamil Sust Rel (Calan Sr Ext Rel), 240 MG PO BID Review of Systems Gastrointestinal: Symptoms: WNL Oral: Symptoms: No Problems Respiratory: Symptoms: WNL Other Respiratory: Dry cough that's persisted since 2014;Has been evaluated;no cause Urinary: Symptoms: WNL Skin: Symptoms: No Problems Breast: Right Upper Arm Measurement: 35.5 Right Mid Arm Measurement: 28.0 Right Wrist Measurement: 17.0 Left Upper Arm Measurement: 35.5 Left Mid Arm Measurement: 28.0 Left Wrist Measurement: 16.5 Arm Dominence: Right Patient Cosmetic Evaluation: Good Physical Exam Vital Signs Date Time Temp Pulse Resp B/P (MAP) Pulse Ox O2 Delivery O2 Flow Rate FiO2 07/14/17 13:48 36.5 104 20 135/84 96 Pain: Pain Location: None Patient Pain Scale: 0 - 10 Initial Pain Intensity: 0.0 Fatigue: None General Appearance: no apparent distress Eyes: normal inspection, EOMI ENT: normal ENT inspection, hearing grossly normal Neck: no adenopathy, thyroid normal Respiratory/Chest: lungs clear, no respiratory distress, no accessory muscle use Breast: Breast examination reveals status post bilateral mammoplasty. There are no masses or tenderness and no axillary adenopathy. She has no skin retractions or telangiectasia. Using the [place] score cosmesis she has a in excellent outcome. Cardiovascular: regular rate, rhythm, no gallop, no murmur Abdomen: normal bowel sounds, non tender Extremities: no pedal edema Neurologic/Psychiatric: no motor/sensory deficits, alert, normal mood/affect Laboratory Studies Test 04/30/17 09:00 White Blood Count 6.98 K/uL (4.8-10.8) Red Blood Count 5.19 M/uL (4.2-5.4) Hemoglobin 14.5 g/dL (12.0-16.0) Hematocrit 45.8 % (37-47) Mean Corpuscular Volume 88.2 fL (80-100) Mean Corpuscular Hemoglobin 27.9 pg (25-34) Mean Corpuscular Hemoglobin Concent 31.7 g/dl (32-36) Platelet Count 395 K/uL (130-400) Mean Platelet Volume 10.0 fL (7.4-10.4) Neutrophils (%) (Auto) 60.6 % Lymphocytes (%) (Auto) 25.2 % Monocytes (%) (Auto) 9.5 % Eosinophils (%) (Auto) 4.3 % Basophils (%) (Auto) 0.3 % Neutrophils # (Auto) 4.23 K/uL (1.4-6.5) Lymphocytes # (Auto) 1.76 K/uL (1.2-3.4) Monocytes # (Auto) 0.66 K/uL (0.11-0.59) Eosinophils # (Auto) 0.30 K/uL (0-0.5) Basophils # (Auto) 0.02 K/uL (0-0.2) RDW Standard Deviation 46.1 fL (36.4-46.3) RDW Coefficient of Variation 14.2 % (11.5-14.5) Immature Granulocyte % (Auto) 0.1 % Immature Granulocyte # (Auto) 0.01 K/uL (0.00-0.02) Sodium Level 143 mmol/L (136-145) Potassium Level 4.3 mmol/L (3.5-5.1) Chloride Level 106 mmol/L (98-107) Carbon Dioxide Level 28 mmol/L (21-32) Anion Gap 9.0 mmol/L (3-11) Blood Urea Nitrogen 13 mg/dl (7-18) Creatinine 0.78 mg/dl (0.60-1.20) Estimated GFR () 93.1 Estimated GFR (Non- 80.3 BUN/Creatinine Ratio 16.9 (10-20) Random Glucose 131 mg/dl (70-99) Calcium Level 9.5 mg/dl (8.5-10.1) Total Bilirubin 0.3 mg/dl (0.2-1) Aspartate Amino Transferase (AST) 18 U/L (15-37) Alanine Aminotransferase (ALT) 32 U/L (12-78) Alkaline Phosphatase 120 U/L (45-117) Total Protein 7.5 gm/dl (6.4-8.2) Albumin 3.6 gm/dl (3.4-5.0) Globulin 3.9 gm/dl (2.5-4.0) Albumin/Globulin Ratio 0.9 (0.9-2) Triglycerides Level 306 mg/dl (0-150) Cholesterol Level 215 mg/dl (0-200) HDL Cholesterol 75 mg/dl LDL Cholesterol, Calculated 79 mg/dl VLDL Cholesterol, Calculated 61 mg/dl Cholesterol/HDL Ratio 2.9 Assessment & Plan Plan: Continue regular follow-up with Dr. Patton and . She'll continue annual mammography. Her mammogram and follow-up visits are scheduled. We asked her to return to our office in 1 year. She may call if she has any questions or concerns in the interim. Total Time In Follow-Up I spent 20 minutes speaking to the patient and performing examination. I spent 15 minutes reviewing information in completing this note. Copy To Verona Hollis M.D.; Rachana Patton M.D.; Jonathon Haines M.D. Problem Qualifiers (1) Breast cancer: Estrogen receptor status: positive Patient sex: female Laterality: right
== END | disposition home or self-care (01) ==
LOC: C.ONC 13:33
PROVIDERS: ATTEND Physician Assistant Medical
DX: Z08 Encounter for follow-up examination after completed treatment for malignant neoplasm (principal); Z92.3 Personal history of irradiation; Z85.3 Personal history of malignant neoplasm of breast

== ENCOUNTER → 2017-08-09 | Outpatient (CLI) | payer BC ==
[~2017-08-09] MED LIST changes: -EXM/25 PO; -OXYC-57 PO; -WARF2TAB PO
== END | disposition home or self-care (01) ==
LOC: C.RDSM 12:39
PROVIDERS: ATTEND Physical Medicine & Rehabilitation Sports Medicine
DX: M16.12 Unilateral primary osteoarthritis, left hip (principal)

== ENCOUNTER → 2017-10-30 | Outpatient (CLI) | payer BC ==
[~2017-10-30] MED LIST changes: +ATOR10TA82 PO; -ATOR10TA88 PO
[2017-10-30 13:04] LABS: ESTIMATED AVERAGE GLUCOSE 128 mg/dl; HA1C FLAG Normal (Normal)
[2017-10-30 13:10] LABS: ALT/SGPT 33 U/L (12-78); AST/SGOT 17 U/L (15-37); BLOOD UREA NITROGEN 17 mg/dl (7-18); BUN/CREATININE RATIO 26.3 (10-20); CALCIUM 8.7 mg/dl (8.5-10.1); CARBON DIOXIDE 32 mmol/L (21-32); CHLORIDE 103 mmol/L (98-107); CREATININE 0.66 mg/dl (0.60-1.20); GLUCOSE 114 mg/dl (70-99); POTASSIUM 4.1 mmol/L (3.5-5.1); SODIUM 137 mmol/L (136-145)
[2017-10-30 13:12] LABS: ALKALINE PHOSPHATASE 119 U/L (45-117); CHOLESTEROL 180 mg/dl (0-200); CHOLESTEROL/HDL RATIO 2.2; HDL CHOLESTEROL 81 mg/dl; LDL CHOLESTEROL CALCULATED 69 mg/dl; TRIGLYCERIDES 148 mg/dl (0-150); VERY LOW DENSITY LIPOPROT CALC 30 mg/dl
== END | disposition home or self-care (01) ==
LOC: C.LABPVFM 08:49
PROVIDERS: ATTEND Internal Medicine Pulmonary Disease
DX: I10 Essential (primary) hypertension (principal); J45.909 Unspecified asthma, uncomplicated; E78.5 Hyperlipidemia, unspecified; M15.9 Polyosteoarthritis, unspecified; R73.9 Hyperglycemia, unspecified

== ENCOUNTER → 2018-02-07 | Outpatient (CLI) | payer BC | END | disposition home or self-care (01) | LOC: C.RDSM 09:20 | PROVIDERS: ATTEND Physical Medicine & Rehabilitation Sports Medicine | DX: M16.12 Unilateral primary osteoarthritis, left hip (principal); Z96.649 Presence of unspecified artificial hip joint ==

== ENCOUNTER → 2018-07-19 | Outpatient (CLI) | payer BC ==
[~2018-07-19] MED LIST changes: +ANAS1TAB59 PO; -BECL0.072; +BECL0.072 INH
[2018-07-19 13:11] VITALS: BP 125/84; PULSE 86; TEMP 36.7; O2SAT 94
--- NOTE | 2018-07-19 13:45 | Radiation Oncology Follow-Up ---
Radiation Oncology Follow-Up Date of Visit Jul 19, 2018. 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 She is noted no changes to her breast. She is noticed no masses or tenderness and no change of the axilla. She has had no swelling of her arm. She is up-to-date on mammography. She is followed by her breast surgeon. She saw her medical oncologist and was discharged. She continues the antiestrogen therapy until December and that will be complete. Allergies Coded Allergies: Codeine (Verified Allergy, Intermediate, pruritis, 01/20/17) Home Medications Scheduled Anastrozole (Arimidex), 1 TAB PO DAILY Atorvastatin (Lipitor), 10 MG PO QPM Beclomethasone Dipropionate (Qvar), 2 PUFFS INH BID Calcium/Vitamin D (Caltrate 600 Plus *), 1 TAB PO BID Venlafaxine Hcl (Effexor), 112.5 MG PO BID Verapamil Sust Rel (Calan Sr Ext Rel), 240 MG PO BID Review of Systems Gastrointestinal: Symptoms: WNL Oral: Symptoms: No Problems Respiratory: Symptoms: WNL Other Respiratory: Dry cough that's persisted since 2014;Has been evaluated;no cause Urinary: Symptoms: WNL Skin: Symptoms: No Problems Breast: Right Upper Arm Measurement: 35.5 Right Mid Arm Measurement: 28.0 Right Wrist Measurement: 17.0 Left Upper Arm Measurement: 34.0 Left Mid Arm Measurement: 28.0 Left Wrist Measurement: 16.7 Arm Dominence: Right Patient Cosmetic Evaluation: Excellent Staff Cosmetic Evalaluation: Excellent Physical Exam Vital Signs Date Time Temp Pulse Resp B/P (MAP) Pulse Ox O2 Delivery O2 Flow Rate FiO2 07/19/18 13:11 36.7 86 16 125/84 94 Fatigue: None General Appearance: no apparent distress Eyes: normal inspection, EOMI ENT: normal ENT inspection, hearing grossly normal Neck: no adenopathy, thyroid normal Respiratory/Chest: lungs clear, no respiratory distress, no accessory muscle use Breast: Breast examination reveals bilateral well-healed incisions from the lumpectomy and bilateral mammoplasty. There are no masses or tenderness and no axillary adenopathy. She has no skin retractions or nipple changes. Using the [place] score of cosmesis she has a good outcome. Cardiovascular: regular rate, rhythm, no gallop, no murmur Extremities: no pedal edema Neurologic/Psychiatric: no motor/sensory deficits, alert, normal mood/affect Skin: warm/dry Pain Management Patient Reports Pain: No Side: Bilateral Pain Location: None Patient Preferred Pain Scale: 0 - 10 Initial Pain Intensity: 0.0 Pain Management Plan She denies pain therefore requires no pain management. Laboratory Laboratory Results: not applicable Pathology Pathology Results: not applicable Imaging Imaging Studies: were reviewed, and pertinent findings noted below Imaging Comments She had a mammogram at [facility] October 05, 2017. This showed no mammographic evidence of malignancy. Routine follow-up in 1 year was recommended. BI-RADS Category 2. Assessment & Plan Plan: Continue regular follow-up with her breast surgeon and primary care provider. She has been discharged from her medical oncologist. She will complete the antiestrogen therapy in December. A follow-up appointment with our office was not given. She may call if she has any questions or concerns we would be happy to see her. Total Time In Follow-Up I spent 20 minutes speaking to the patient in performing examination. I spent 15 minutes reviewing information and completing this note. [place] Copy To Verona Hollis M.D.; Rachana Patton M.D.; Jonathon Haines M.D. Problem Qualifiers (1) Breast cancer: Estrogen receptor status: positive Patient sex: female Laterality: right
== END | disposition home or self-care (01) ==
LOC: C.ONC 12:54
PROVIDERS: ATTEND Physician Assistant Medical
DX: Z08 Encounter for follow-up examination after completed treatment for malignant neoplasm (principal); Z92.3 Personal history of irradiation; Z85.3 Personal history of malignant neoplasm of breast

== ENCOUNTER 2025-06-09 10:14 | Inpatient (IN) ==
--- NOTE | 2025-06-09 11:09 | Emergency Department Note ---
Impression & Plan Sepsis, Acute UTI (urinary tract infection), Elevated procalcitonin, Fever, LUCITA (acute kidney injury), Leukocytosis, Non-ST elevation [place] (NSTEMI), Acute hypokalemia, Hypoxia ED Provider Note HISTORY OF PRESENT ILLNESS: Patient is a 74-year-old female presenting with cough and fevers. Patient reports she has been having a continued fever for the last 4 days. Reports Tmax is 101.7. She states that she last took ibuprofen at 4 AM. Reports having subjective chills at home and breaking out into sweats. She reports generalized bodyaches. Denies any abdominal pain, nausea or vomiting. Denies any diarrhea. Denies any dysuria or hematuria. She states that she has had a cough that is been productive of a white sputum. She denies any chest pain or shortness of breath. She does not wear any supplemental oxygen at baseline. She recently traveled on vacation with family 2 weeks ago but was feeling fine up until the last 4 days. Denies any DVT or PE history. She is not on any anticoagulation or antiplatelet therapy. Denies any history of cardiac stents. ROS: as above PHYSICAL EXAM: Constitutional: Patient appears in no acute distress. HENT: Head: Normocephalic and atraumatic. Eyes: EOMI, PERRL Mouth/Throat: Mucous membranes moist. Neck: Trachea midline. Neck supple. Cardiovascular: RRR, No murmurs, rubs or gallops. Intact distal pulses. Pulmonary/Chest: No respiratory distress. Breath sounds clear and equal bilaterally. No wheezes or rales. Abdominal: Abdomen soft, no tenderness, rebound or guarding. Musculoskeletal: No edema, tenderness or deformity noted. Skin: Warm and dry. No rash, erythema, pallor or cyanosis Psychiatric: Appropriate mood and affect for situation. Neurological: Alert and keenly responsive. CN II-XII grossly intact, moving all extremities equally and fully. MDM: - Vitals signs showed tachycardia and hypoxia. Patient placed on 2 L nasal cannula. - History obtained via patient. History as above. - Chronic conditions affecting care: DM-2; breast cancer; obesity - Differential diagnoses include, but are not limited to: pneumonia; viral syndrome; UTI; bacteremia; electrolyte abnormality - Order placed for continuous cardiac monitoring. At this time, monitor showed rate of 88 bpm with normal sinus rhythm, per my interpretation. - External medical records reviewed. Primary care visit note dated 03/18/2025 was reviewed. Patient was seen for treatment for her diabetes and morbid obesity. She is on metformin. - EKG image interpreted by myself showed normal sinus rhythm. Rate 94 bpm. QT 378. No acute ischemic changes. - Laboratory workup interpreted by myself showed leukocytosis (WBC 18.99) with neutrophil predominance; normal PT/INR; normal lactate; hypokalemia (K 3.2); LUCITA (Cr 1.25 - baseline around 0.7); elevated procalcitonin (87.5); elevated troponin (189.5); normal BNP - UA showed evidence of infection - Blood cultures obtained - CXR image reviewed by myself is negative for pneumonia, per my interpretation. - Viral respiratory panel negative - Patient given 2.5L NS in ER. Patient's sepsis fluid volume calculation based on ideal body weight is 2988.00 mL. - MRSA DNA swab obtained. - Patient given IV rocephin + vancomycin for antibiotic coverage. - Discussion was had with case management assistant about patient's case and need for admission - Hospitalist, Dr. Soriano, consulted for admission - [facility]. I have personally spent 37 minutes of critical care time in the direct management of this patient. This includes bedside care, interpretation of diagnostic studies, and testing, discussion with consultants, patient, and family members, and other required patient management activities. This 37 minutes is in excess of all separately billable procedures. ASSESSMENT AND PLAN: Diagnosis: sepsis; acute UTI; elevated procalcitonin; fever; LUCITA; leukocytosis; NSTEMI; acute hypokalemia; hypoxia Plan: admit Past Med/Surg History Problem List (Updated 06/09/25 @ 13:51 by Keyla Madrigal MD) Hypoxia (Acute) Acute hypokalemia (Acute) Non-ST elevation [place] (NSTEMI) (Acute) Leukocytosis (Acute) LUCITA (acute kidney injury) (Acute) Elevated troponin Acute kidney injury Hypotension Fever (Acute) Elevated procalcitonin (Acute) Acute UTI (urinary tract infection) (Acute) Sepsis (Acute) Body mass index (BMI) of 40.1 to 44.9 in adult Morbid obesity Acute asthma exacerbation History of right breast cancer 07/2013. Received radiation therapy and 5 yr arimidex therapy Type 2 diabetes mellitus Allergic rhinitis Hypertension (Acute) Dyslipidemia (Acute) Degenerative joint disease, multiple joints on both sides of body (Acute) Common migraine without aura (Acute) Asthma Medical History Obesity No pertinent past medical history Surgical History History of mastectomy History of bilateral breast reduction surgery History of oral surgery Hx of arthroplasty History of total hip replacement History of section History of lumbar laminectomy History of cholecystectomy Family History Unknown Heart disease Hypertension Father Myocardial infarction Denies family history of Ovarian cancer Prostate cancer Diabetes Breast cancer Colorectal cancer Social History Smoking Status: Never smoker Second Hand Exposure: No; Do You Dip or Chew Tobacco: No; Hx Alcohol Use: No Hx Substance Use: No Preferred Language: Spanish Communication Ability: Effective Hearing Ability: Use of Hearing Aid [employer] Equipment Operator Required: No marital status: Current Living Situation: Spouse current occupational status: retired How many Children do You have: 2 Feels Safe at Home: Yes Childhood Exposure to Second-Hand Smoke: No Diet: regular caffeine: Yes Dental Care, Regularly: Yes Physical Activity Frequency: 1-2 Times per Week Seatbelt Use: always Sunscreen Use: Yes Allergies Allergies Allergy/AdvReac Type Severity Reaction Status Date / Time hazelnut Allergy Severe THROAT Verified 06/09/25 12:48 TIGHTENING, FACIAL, LIPS & TONGUE SWELLING. codeine Allergy Intermediate pruritis Verified 06/09/25 12:48 tramadol Allergy Intermediate ITCHING Verified 06/09/25 12:48 Home Meds Home Medications Medication Instructions Recorded Confirmed calcium 600 mg (as 1 tab PO BID 08/01/19 06/09/25 carbonate)-vitamin D3 5 mcg (200 unit) tablet metformin 500 mg tablet,extended 500 mg PO BID 06/09/25 06/09/25 release 24 hr semaglutide 0.25 mg or 0.5 mg (2 0.5 mg subcut WK 06/09/25 06/09/25 mg/3 mL) subcutaneous pen injector (Ozempic) Previous Rx's Medication Instructions Recorded epinephrine 0.3 mg/0.3 mL 0.3 mg (0.3 mL) IM ONCE PRN 07/31/21 injection, auto-injector (EpiPen) anaphylaxis #1 ea albuterol sulfate 90 mcg/actuation 2 puff inhalation Q6H PRN 01/30/25 aerosol inhaler shortness of breath or wheezing #8.5 grams fluticasone furoate 100 1 inh inhalation DAILY #90 ea 01/30/25 mcg/actuation blister powder for inhalation (Arnuity Ellipta) atorvastatin 10 mg tablet 10 mg PO QPM #90 tabs 05/30/25 verapamil 120 mg tablet,extended 240 mg (2 x 120 mg) PO BID #360 05/30/25 release tabs celecoxib 200 mg capsule 200 mg PO BID #180 caps 06/08/25 Results & Data (ED) Vital Signs Vital Signs - 24 hr 06/09/25 10:18 06/09/25 10:33 06/09/25 10:47 Temperature 36.9 C Temperature Source Oral Pulse Rate 108 H 101 H 100 H Pulse Rate from SpO2 Sensor 100 H Respiratory Rate 20 23 Respiratory Effort / Characteristics Non-Labored Spontaneous Respiratory Depth Normal Respiratory Pattern Regular Blood Pressure 101/68 120/68 Blood Pressure Mean 79 85 Blood Pressure Position Sitting Pulse Oximetry 93 93 Oxygen Delivery Method Room Air Nasal Cannula Oxygen Flow Rate 2 Sepsis Recent Fever Within 48 Hours Yes Sepsis New/Unexplained Change in Mental Status N/A Sepsis Action Taken by Nursing No Action Required Oxygen Flow Rate - Titration Pulse Oximetry Post Tiitration 06/09/25 10:55 06/09/25 11:00 06/09/25 12:06 Temperature Temperature Source Pulse Rate 101 H 88 Pulse Rate from SpO2 Sensor 100 H 88 Respiratory Rate 22 25 H Respiratory Effort / Characteristics Respiratory Depth Respiratory Pattern Blood Pressure 97/63 L 104/69 Blood Pressure Mean 75 80 Blood Pressure Position Pulse Oximetry 88 L 95 91 Oxygen Delivery Method Room Air Oxygen Flow Rate Sepsis Recent Fever Within 48 Hours Sepsis New/Unexplained Change in Mental Status Sepsis Action Taken by Nursing Oxygen Flow Rate - Titration 2 Pulse Oximetry Post Tiitration 92 Laboratory Data 06/09/25 10:32 06/09/25 10:32 Lab Results 06/09/25 06/09/25 06/09/25 Range/Units 10:30 10:32 11:45 WBC 18.99 H (4.8-10.8) K/ul RBC 4.87 (4.20-5.40) M/uL Hgb 14.2 (12.0-16.0) g/dl Hct 44.0 (37.0-47.0) % MCV 90.3 (80.0-100.0) fL MCH 29.2 (25.0-34.0) pg MCHC 32.3 (32.0-36.0) g/dL RDW Std Deviation 44.1 (36.4-46.3) fL RDW Coeff of Deidre 13.3 (11.5-14.5) % Plt Count 219 (130-400) K/uL MPV 10.2 (9.4-12.4) fL Immature Gran % (Auto) 0.9 % Neut % (Auto) 93.8 % Lymph % (Auto) 1.7 % Jessamine % (Auto) 3.1 % Eos % (Auto) 0.2 % Baso % (Auto) 0.3 % Neut # (Auto) 17.82 H (1.40-6.50) K/uL Lymph # (Auto) 0.33 L (1.20-3.40) K/uL Jessamine # (Auto) 0.58 (0.11-0.59) K/uL Eos # (Auto) 0.04 (0.00-0.50) K/uL Baso # (Auto) 0.05 (0.00-0.20) K/uL Immature Gran # (Auto) 0.17 (0.01-0.20) K/uL Toxic Vacuolation 1+ PT 11.2 (9.0-12.0) Seconds INR 1.0 (0.9-1.1) Sodium 136 (136-145) mmol/L Potassium 3.2 L (3.5-5.1) mmol/L Chloride 100 (98-107) mmol/L Carbon Dioxide 25 (21-32) mmol/L Anion Gap 11 (3-11) BUN 17 (6-23) mg/dl Creatinine 1.25 H (0.6-1.2) mg/dl Est Cr Clr Drug Dosing 45.8 ml/min eGFR 45.80 BUN/Creatinine Ratio 13.6 (10-20) Glucose 173 H (70-99(Fasting)) mg/dl Lactate 1.7 (0.4-2.0) mmol/L Calcium 9.2 (8.6-10.3) mg/dl Magnesium 1.7 (1.7-2.4) mg/dl Total Bilirubin 0.7 (0.2-1.0) mg/dl AST 36 (13-39) U/L ALT 29 (7-52) U/L Alkaline Phosphatase 107 H (34-104) U/L Troponin I High Sens 189.5 H* (0-14) pg/ml B-Natriuretic Peptide 69 (0-100) pg/ml Total Protein 7.2 (6.0-8.3) gm/dl Albumin 3.5 (3.4-5.0) gm/dl Globulin 3.7 (2.5-4.0) gm/dl Albumin/Globulin Ratio 0.9 (0.9-2) Procalcitonin (0-0.5) ng/ml Urine Color Urine Appearance (Clear) Urine pH (4.5-7.5) Ur Specific Boone (1.000-1.030) Urine Protein (Negative) Urine Glucose (UA) (Negative) Urine Ketones (Negative) Urine Blood (Negative) Urine Nitrite (Negative) Urine Bilirubin (Negative) Urine Urobilinogen (Negative) Ur Leukocyte Esterase (Negative) Urine WBC (Auto) (0-5) /hpf Urine RBC (Auto) (0-2) /hpf U Hyaline Cast (Auto) (0-2) /lpf U Epithel Cells (Auto) (0-2) /hpf Urine Bacteria (Auto) (None Seen) Hyaline Casts (None Presnt) /lpf Urine Comment Adenovirus (PCR) Not Detected (NotDetected) B. pertussis DNA (PCR) Not Detected (NotDetected) B.parapertussis DNA PCR Not Detected (NotDetected) C. pneumoniae DNA (PCR) Not Detected (NotDetected) Coronavirus OC43 (PCR) Not Detected (NotDetected) Coronavirus HKU1 (PCR) Not Detected (NotDetected) Coronavirus 229E (PCR) Not Detected (NotDetected) SARS-CoV-2 (PCR) Not Detected (NotDetected) Coronavirus NL63 (PCR) Not Detected (NotDetected) Human Metapneumovir PCR Not Detected (NotDetected) Influenza Type A (PCR) Not Detected (NotDetected) Influenza Type B (PCR) Not Detected (NotDetected) M. pneumoniae (PCR) Not Detected (NotDetected) Parainfluenza 1 (PCR) Not Detected (NotDetected) Parainfluenza 2 (PCR) Not Detected (NotDetected) Parainfluenza 3 (PCR) Not Detected (NotDetected) Parainfluenza 4 (PCR) Not Detected (NotDetected) RSV (PCR) Not Detected (NotDetected) Entero/Rhino (PCR) Not Detected (NotDetected) 06/09/25 06/09/25 Range/Units 12:13 13:04 WBC (4.8-10.8) K/ul RBC (4.20-5.40) M/uL Hgb (12.0-16.0) g/dl Hct (37.0-47.0) % MCV (80.0-100.0) fL MCH (25.0-34.0) pg MCHC (32.0-36.0) g/dL RDW Std Deviation (36.4-46.3) fL RDW Coeff of Deidre (11.5-14.5) % Plt Count (130-400) K/uL MPV (9.4-12.4) fL Immature Gran % (Auto) % Neut % (Auto) % Lymph % (Auto) % Jess[place] % (Auto) % Eos % (Auto) % Baso % (Auto) % Neut # (Auto) (1.40-6.50) K/uL Lymph # (Auto) (1.20-3.40) K/uL Jess[place] # (Auto) (0.11-0.59) K/uL Eos # (Auto) (0.00-0.50) K/uL Baso # (Auto) (0.00-0.20) K/uL Immature Gran # (Auto) (0.01-0.20) K/uL Toxic Vacuolation PT (9.0-12.0) Seconds INR (0.9-1.1) Sodium (136-145) mmol/L Potassium (3.5-5.1) mmol/L Chloride (98-107) mmol/L Carbon Dioxide (21-32) mmol/L Anion Gap (3-11) BUN (6-23) mg/dl Creatinine (0.6-1.2) mg/dl Est Cr Clr Drug Dosing ml/min eGFR BUN/Creatinine Ratio (10-20) Glucose (70-99(Fasting)) mg/dl Lactate (0.4-2.0) mmol/L Calcium (8.6-10.3) mg/dl Magnesium (1.7-2.4) mg/dl Total Bilirubin (0.2-1.0) mg/dl AST (13-39) U/L ALT (7-52) U/L Alkaline Phosphatase (34-104) U/L Troponin I High Sens (0-14) pg/ml B-Natriuretic Peptide (0-100) pg/ml Total Protein (6.0-8.3) gm/dl Albumin (3.4-5.0) gm/dl Globulin (2.5-4.0) gm/dl Albumin/Globulin Ratio (0.9-2) Procalcitonin 87.50 H (0-0.5) ng/ml Urine Color Yellow Urine Appearance Cloudy A (Clear) Urine pH 5.5 (4.5-7.5) Ur Specific Bo[place] 1.015 (1.000-1.030) Urine Protein 2+ H (Negative) Urine Glucose (UA) Negative (Negative) Urine Ketones Trace H (Negative) Urine Blood 1+ H (Negative) Urine Nitrite Negative (Negative) Urine Bilirubin Negative (Negative) Urine Urobilinogen Negative (Negative) Ur Leukocyte Esterase 1+ H (Negative) Urine WBC (Auto) 6-10 H (0-5) /hpf Urine RBC (Auto) 0-2 (0-2) /hpf U Hyaline Cast (Auto) >20 H (0-2) /lpf U Epithel Cells (Auto) 11-20 H (0-2) /hpf Urine Bacteria (Auto) 4+ H (None Seen) Hyaline Casts Present A (None Presnt) /lpf Urine Comment Adenovirus (PCR) (NotDetected) B. pertussis DNA (PCR) (NotDetected) B.parapertussis DNA PCR (NotDetected) C. pneumoniae DNA (PCR) (NotDetected) Coronavirus OC43 (PCR) (NotDetected) Coronavirus HKU1 (PCR) (NotDetected) Coronavirus 229E (PCR) (NotDetected) SARS-CoV-2 (PCR) (NotDetected) Coronavirus NL63 (PCR) (NotDetected) Human Metapneumovir PCR (NotDetected) Influenza Type A (PCR) (NotDetected) Influenza Type B (PCR) (NotDetected) M. pneumoniae (PCR) (NotDetected) Parainfluenza 1 (PCR) (NotDetected) Parainfluenza 2 (PCR) (NotDetected) Parainfluenza 3 (PCR) (NotDetected) Parainfluenza 4 (PCR) (NotDetected) RSV (PCR) (NotDetected) Entero/Rhino (PCR) (NotDetected) Administered Medications Sodium Chloride (Nss) 1,000 mls @ 999 mls/hr IV .Q1H1M ONE Stop: 06/09/25 13:56 Last Admin: 06/09/25 13:10 Dose: 999 mls/hr Documented By: TDM Vancomycin HCl 2,000 mg/ (Sodium Chloride) 540 mls @ 200 mls/hr IV NOW ONE Stop: 06/09/25 15:43 Last Admin: 06/09/25 13:29 Dose: 200 mls/hr Documented By: TDM Sodium Chloride (Nss) 1,000 mls @ 999 mls/hr IV .Q1H1M ONE Stop: 06/09/25 14:03 Last Admin: 06/09/25 13:16 Dose: 999 mls/hr Documented By: TDM Discontinued Medications Ceftriaxone Sodium (Rocephin) 2,000 mg in 50 mls @ 100 mls/hr IV NOW STA Stop: 06/09/25 12:40 Last Admin: 06/09/25 12:21 Dose: 100 mls/hr Documented By: TDM Imaging Data Radiologist's Impression: Chest X-Ray 06/09/25 11:07 EXAM: Radiograph of the Chest 1 View INDICATION: Dyspnea. TECHNIQUE: Frontal view of the chest. COMPARISON: 07/31/2021 FINDINGS: Lungs and pleural spaces: Stable right basilar scarring. No consolidation or pulmonary edema. No pleural effusion or pneumothorax. Heart: Shape and configuration within normal limits allowing for technique. Mediastinum: Normal contour. Bones/joints: No fracture, erosion or dislocation. Soft tissues: No abnormality noted. No radiopaque foreign body noted. Upper abdomen: No abnormality noted. IMPRESSION: Stable chronic changes. No acute disease. ACT 112: N/A Electronically signed by Renae Mcfarland 06-09-2025 12:07 PM Discharge Plan Visit Data Chief Complaint: Flu Like Symptoms Stated Complaint: FEVER, CHILLS, SWEATS 4 DAYS ED Provider: Keyla Madrigal Discharge Problem: Sepsis, Acute UTI (urinary tract infection), Elevated procalcitonin, Fever, LUCITA (acute kidney injury), Leukocytosis, Non-ST elevation [place] (NSTEMI), Acute hypokalemia, Hypoxia Condition: Fair Forms Stand Alone Forms: [employer] Prescriptions Prescriptions: No Action calcium carbonate-vitamin D3 600 mg(1,500mg) -200 unit tablet 1 tab PO BID verapamil 120 mg tablet extended release 240 mg PO BID Qty: 360 1RF atorvastatin 10 mg tablet 10 mg PO QPM Qty: 90 1RF celecoxib 200 mg capsule 200 mg PO BID Qty: 180 1RF albuterol sulfate 90 mcg/actuation HFA aerosol inhaler 2 puff inhalation Q6H PRN (Reason: shortness of breath or wheezing) Qty: 8.5 5RF Arnuity Ellipta 100 mcg/actuation blister with device 1 inh inhalation DAILY Qty: 90 3RF epinephrine [EpiPen] 0.3 mg/0.3 mL auto-injector 0.3 mg IM ONCE PRN (Reason: anaphylaxis) Qty: 1 0RF metformin 500 mg tablet extended release 24 hr 500 mg PO BID Ozempic 0.25 mg or 0.5 mg (2 mg/3 mL) pen injector 0.5 mg subcut WK Patient Comments: Injected on Tuesdays Rx Instructions: Wednesday Referrals Referrals: Arianna Luis CRNP [Primary Care Provider] -
[2025-06-09 11:31] LABS: Hematocrit (blood only) 44.0 % (37.0-47.0); Hemoglobin 14.2 g/dl (12.0-16.0); Mean Corpuscular Hemoglobin 29.2 pg (25.0-34.0); Mean Corpuscular Volume 90.3 fL (80.0-100.0); Platelet Count 219 K/uL (130-400); RDW Standard Deviation 44.1 fL (36.4-46.3); Red Blood Count 4.87 M/uL (4.20-5.40); White Blood Count 18.99 K/ul (4.8-10.8)
[2025-06-09 11:50] LABS: Alanine Aminotransferase 29.0 U/L (7-52); Albumin Globulin Ratio 0.9 (0.9-2); Alkaline Phosphatase 107.0 U/L (34-104); Anion Gap 11.0 (3-11); Bilirubin,Total 0.7 mg/dl (0.2-1.0); Blood Urea Nitrogen 17.0 mg/dl (6-23); Calcium 9.2 mg/dl (8.6-10.3); Carbon Dioxide 25.0 mmol/L (21-32); Chloride 100.0 mmol/L (98-107); Creatinine Clr Calc Pharmacy 45.8 ml/min; Globulin 3.7 gm/dl (2.5-4.0); Glucose 173.0 mg/dl (70-99(Fasting)); Magnesium 1.7 mg/dl (1.7-2.4); Potassium 3.2 mmol/L (3.5-5.1); Sodium 136.0 mmol/L (136-145); Total Protein 7.2 gm/dl (6.0-8.3)
[2025-06-09 11:52] LABS: Immature Granulocytes # (auto) 0.17 K/uL (0.01-0.20); Immature Granulocytes % (auto) 0.9 %; Toxic Vacuolation 1+
--- NOTE | 2025-06-09 12:08 | XRay Report ---
EXAM: Radiograph of the Chest 1 View INDICATION: Dyspnea. TECHNIQUE: Frontal view of the chest. COMPARISON: 07/31/2021 FINDINGS: Lungs and pleural spaces: Stable right basilar scarring. No consolidation or pulmonary edema. No pleural effusion or pneumothorax. Heart: Shape and configuration within normal limits allowing for technique. Mediastinum: Normal contour. Bones/joints: No fracture, erosion or dislocation. Soft tissues: No abnormality noted. No radiopaque foreign body noted. Upper abdomen: No abnormality noted. IMPRESSION: Stable chronic changes. No acute disease. ACT 112: N/A Electronically signed by Renae Mcfarland 06-09-2025 12:07 PM
[2025-06-09] MEDS: cefTRIAXone SODIUM 2,000 MG/50 ML BAG IV STA (12:21)
[2025-06-09 12:29] LABS: INR 1.0 (0.9-1.1); Prothrombin Time 11.2 Seconds (9.0-12.0)
[2025-06-09 12:58] LABS: Chlamydia pneumoniae PCR Not Detected (NotDetected); Coronavirus 229E PCR Not Detected (NotDetected); Coronavirus CoV-2 (COVID19)PCR Not Detected (NotDetected); Coronavirus HKU1 PCR Not Detected (NotDetected); Coronavirus NL63 PCR Not Detected (NotDetected); Coronavirus OC43PCR Not Detected (NotDetected); Human Metapneumovirus PCR Not Detected (NotDetected); Parainfluenza Virus 1 PCR Not Detected (NotDetected); Parainfluenza Virus 2 PCR Not Detected (NotDetected); Parainfluenza Virus 3 PCR Not Detected (NotDetected); Parainfluenza Virus 4 PCR Not Detected (NotDetected); Respiratory Syncytial VirusPCR Not Detected (NotDetected); Rhinovirus/Enterovirus PCR Not Detected (NotDetected)
[2025-06-09] MEDS ORDERED: VANCOMYCIN CONSULT ACTIVE PRN (13:02)
[2025-06-09] MEDS: SODIUM CHLORIDE 0.9% 1,000 ML IV ONE ×2 (13:10→13:16)
--- NOTE | 2025-06-09 13:27 | History & Physical Report ---
Date of Service June 09, 2025 Assessment & Plan (1) Acute UTI (urinary tract infection): (2) Sepsis: (3) Acute kidney injury: (4) Elevated troponin: Plan The patient is a 74-year-old female with a past medical history including asthma, right breast cancer, diabetes mellitus type 2, hypertension, dyslipidemia, degenerative joint disease,, migraine without aura, and history of pyelonephritis. The patient presents to the emergency department with 4 days of significant fevers, chills and sweats over the past 4 days, and worsened especially over the evening last night. She does report that her symptoms are similar to when she had pyelonephritis several years ago. She reports that she has been taking Ozempic since February, and occasionally has upset stomach that she attributes to this medication. Sepsis/hypotension- Empiric treatment with vancomycin IV and ceftriaxone IV at this time Pro-Oliver 87.50 Follow urine culture and sensitivity, urinalysis suggestive of significant UTI Follow blood culture and sensitivity Blood pressure is relatively low for her at 96/76, will therefore hold verapamil She received 3 L normal saline from the ED Then place on NSS at 80 mL/h x 1 L Admit to PCU Elevated troponin- Initial troponin 189.5 with follow-up pending Follow enzymes serially May just be secondary to septic picture, but will order echocardiogram if follow-up troponins are worse Acute kidney injury/hypokalemia/hypomagnesemia- Creatinine 1.25, with base is 0.72 Potassium 3.2, give Klor-Con 20 mEq p.o. now, and then adjust IV fluids as above Magnesium 1.7, give mag sulfate 1 g IV Hold Celebrex IV fluids as noted above Diabetes mellitus- Hold metformin and Ozempic Accu-Cheks with NovoLog SSI History of Present Illness Chief Complaint: The patient presents to the emergency department with complaint of fever, chills and sweats that began Wednesday, 4 days ago. She does report [place] [facility] [place] [facility] [place] She has no specific symptoms related to GI, or pulmonary as potential causes of her symptoms. She reports that she did feel similarly several years ago, and had been diagnosed with a pyelonephritis and was placed on antibiotic at that time. Primary Care Provider: TESSA Méndez The patient is a 74-year-old female with a past medical history including asthma, right breast cancer, diabetes mellitus type 2, hypertension, dyslipidemia, degenerative joint disease,, migraine without aura, and history of pyelonephritis. The patient presents to the emergency department with 4 days of significant fevers, chills and sweats over the past 4 days, and worsened especially over the evening last night. She does report that her symptoms are similar to when she had pyelonephritis several years ago. Allergies Allergy/AdvReac Type Severity Reaction Status Date / Time hazelnut Allergy Severe THROAT Verified 06/09/25 12:48 TIGHTENING, FACIAL, LIPS & TONGUE SWELLING. codeine Allergy Intermediate pruritis Verified 06/09/25 12:48 tramadol Allergy Intermediate ITCHING Verified 06/09/25 12:48 Home Medications Medication Instructions Recorded Confirmed Type calcium 600 mg (as 1 tab PO BID 08/01/19 06/09/25 History carbonate)-vitamin D3 5 mcg (200 unit) tablet epinephrine 0.3 mg/0.3 mL 0.3 mg (0.3 mL) IM ONCE PRN 07/31/21 06/09/25 Rx injection, auto-injector (EpiPen) anaphylaxis #1 ea albuterol sulfate 90 mcg/actuation 2 puff inhalation Q6H PRN 01/30/25 06/09/25 Rx aerosol inhaler shortness of breath or wheezing #8.5 grams fluticasone furoate 100 1 inh inhalation DAILY #90 ea 01/30/25 06/09/25 Rx mcg/actuation blister powder for inhalation (Arnuity Ellipta) atorvastatin 10 mg tablet 10 mg PO QPM #90 tabs 05/30/25 06/09/25 Rx verapamil 120 mg tablet,extended 240 mg (2 x 120 mg) PO BID #360 05/30/25 06/09/25 Rx release tabs celecoxib 200 mg capsule 200 mg PO BID #180 caps 06/08/25 06/09/25 Rx metformin 500 mg tablet,extended 500 mg PO BID 06/09/25 06/09/25 History release 24 hr semaglutide 0.25 mg or 0.5 mg (2 0.5 mg subcut WK 06/09/25 06/09/25 History mg/3 mL) subcutaneous pen injector (Ozempic) Past Med/Surg History Problem List (Updated 06/09/25 @ 13:42 by Cleve Soriano MD) Elevated troponin Acute kidney injury Hypotension Fever (Acute) Elevated procalcitonin (Acute) Acute UTI (urinary tract infection) (Acute) Sepsis (Acute) Body mass index (BMI) of 40.1 to 44.9 in adult Morbid obesity Acute asthma exacerbation History of right breast cancer 07/2013. Received radiation therapy and 5 yr arimidex therapy Type 2 diabetes mellitus Allergic rhinitis Hypertension (Acute) Dyslipidemia (Acute) Degenerative joint disease, multiple joints on both sides of body (Acute) Common migraine without aura (Acute) Asthma Medical History Obesity No pertinent past medical history Surgical History History of mastectomy History of bilateral breast reduction surgery History of oral surgery Hx of arthroplasty History of total hip replacement History of section History of lumbar laminectomy History of cholecystectomy Family History Unknown Heart disease Hypertension Father Myocardial infarction Denies family history of Ovarian cancer Prostate cancer Diabetes Breast cancer Colorectal cancer Social History Smoking Status: Never smoker Second Hand Exposure: No; Do You Dip or Chew Tobacco: No; Hx Alcohol Use: No Hx Substance Use: No Preferred Language: [place] Communication Ability: Effective Hearing Ability: Use of Hearing Aid Manager Of Financial Planning Required: No marital status: Current Living Situation: Spouse current occupational status: retired How many Children do You have: 2 Feels Safe at Home: Yes Childhood Exposure to Second-Hand Smoke: No Diet: regular caffeine: Yes Dental Care, Regularly: Yes Physical Activity Frequency: 1-2 Times per Week Seatbelt Use: always Sunscreen Use: Yes Review of Systems Review of Systems: The patient denies chest pain, palpitations, shortness of breath, dyspnea on exertion, cough, lower extremity swelling, sore throat, nausea, vomiting, diarrhea , constipation, abdominal pain, pelvic pain, blood in urine or stool, dysuria, urinary frequency or urgency, lightheadedness, dizziness, headache, memory loss, loss of consciousness, rash, abnormal bruising or bleeding, imbalance, focal weakness, numbness or tingling in arms or legs, generalized arthralgias or myalgias, back or neck pain, or night sweats. The review of systems is otherwise negative other than for that already noted above, and at least 10 systems have been reviewed. Physical Exam Physical Exam: The patient is awake, alert and oriented 3, well developed and well nourished, normocephalic and atraumatic, lying in bed and in no acute distress. HEENT--PERRL, EOMI, mucous membranes and oropharynx moderately dry. Neck--supple. No JVD. No bruits. Thyroid normal, trachea midline, no adenopathy. Heart--normal S1 and S2. No murmurs, rubs or gallops. Lungs--clear bilaterally, no respiratory distress, no accessory muscle use. Abdomen--normal bowel sounds and soft. Nontender. Nondistended, no hernias or masses, no organomegaly. Extremities--no cyanosis or clubbing. No edema. Dermatologic--normal skin turgor, normal color, no abnormal lymph nodes, no rash. Neurologic--cranial nerves II through XII grossly intact. Rheumatologic--normal range of motion. Psychiatric--normal affect. Results & Data Results & Data Vital Signs (Past 12 Hours) Vital Signs Temp Pulse Resp BP Pulse Ox O2 Del Method O2 Flow Rate 06/09/25 12:06 88 25 H 104/69 91 06/09/25 11:00 101 H 22 97/63 L 95 06/09/25 10:55 88 L Room Air 06/09/25 10:47 100 H 06/09/25 10:33 101 H 23 120/68 93 Nasal Cannula 2 06/09/25 10:18 36.9 C 108 H 20 101/68 93 Room Air Laboratory Results Laboratory Results WBC 18.99 K/ul (4.8-10.8) H 06/09/25 10:32 RBC 4.87 M/uL (4.20-5.40) 06/09/25 10:32 Hgb 14.2 g/dl (12.0-16.0) 06/09/25 10:32 Hct 44.0 % (37.0-47.0) 06/09/25 10:32 MCV 90.3 fL (80.0-100.0) 06/09/25 10:32 MCH 29.2 pg (25.0-34.0) 06/09/25 10:32 MCHC 32.3 g/dL (32.0-36.0) 06/09/25 10:32 RDW Std Deviation 44.1 fL (36.4-46.3) 06/09/25 10:32 RDW Coeff of Deidre 13.3 % (11.5-14.5) 06/09/25 10:32 Plt Count 219 K/uL (130-400) 06/09/25 10:32 MPV 10.2 fL (9.4-12.4) 06/09/25 10:32 Immature Gran % (Auto) 0.9 % 06/09/25 10:32 Neut % (Auto) 93.8 % 06/09/25 10:32 Lymph % (Auto) 1.7 % 06/09/25 10:32 Aiken % (Auto) 3.1 % 06/09/25 10:32 Eos % (Auto) 0.2 % 06/09/25 10:32 Baso % (Auto) 0.3 % 06/09/25 10:32 Neut # (Auto) 17.82 K/uL (1.40-6.50) H 06/09/25 10:32 Lymph # (Auto) 0.33 K/uL (1.20-3.40) L 06/09/25 10:32 Aiken # (Auto) 0.58 K/uL (0.11-0.59) 06/09/25 10:32 Eos # (Auto) 0.04 K/uL (0.00-0.50) 06/09/25 10:32 Baso # (Auto) 0.05 K/uL (0.00-0.20) 06/09/25 10:32 Immature Gran # (Auto) 0.17 K/uL (0.01-0.20) 06/09/25 10:32 Toxic Vacuolation 1+ 06/09/25 10:32 PT 11.2 Seconds (9.0-12.0) 06/09/25 10:32 INR 1.0 (0.9-1.1) 06/09/25 10:32 Sodium 136 mmol/L (136-145) 06/09/25 10:32 Potassium 3.2 mmol/L (3.5-5.1) L 06/09/25 10:32 Chloride 100 mmol/L (98-107) 06/09/25 10:32 Carbon Dioxide 25 mmol/L (21-32) 06/09/25 10:32 Anion Gap 11 (3-11) 06/09/25 10:32 BUN 17 mg/dl (6-23) 06/09/25 10:32 Creatinine 1.25 mg/dl (0.6-1.2) H 06/09/25 10:32 Est Cr Clr Drug Dosing 45.8 ml/min 06/09/25 10:32 eGFR 45.80 06/09/25 10:32 BUN/Creatinine Ratio 13.6 (10-20) 06/09/25 10:32 Glucose 173 mg/dl (70-99(Fasting)) H 06/09/25 10:32 Lactate 1.7 mmol/L (0.4-2.0) 06/09/25 11:45 Calcium 9.2 mg/dl (8.6-10.3) 06/09/25 10:32 Magnesium 1.7 mg/dl (1.7-2.4) 06/09/25 10:32 Total Bilirubin 0.7 mg/dl (0.2-1.0) 06/09/25 10:32 AST 36 U/L (13-39) 06/09/25 10:32 ALT 29 U/L (7-52) 06/09/25 10:32 Alkaline Phosphatase 107 U/L (34-104) H 06/09/25 10:32 Troponin I High Sens 189.5 pg/ml (0-14) H* 06/09/25 10:32 B-Natriuretic Peptide 69 pg/ml (0-100) 06/09/25 10:32 Total Protein 7.2 gm/dl (6.0-8.3) 06/09/25 10:32 Albumin 3.5 gm/dl (3.4-5.0) 06/09/25 10:32 Globulin 3.7 gm/dl (2.5-4.0) 06/09/25 10:32 Albumin/Globulin Ratio 0.9 (0.9-2) 06/09/25 10:32 Procalcitonin 87.50 ng/ml (0-0.5) H 06/09/25 12:13 Urine Comment 06/09/25 13:04 Adenovirus (PCR) Not Detected (NotDetected) 06/09/25 10:30 B. pertussis DNA (PCR) Not Detected (NotDetected) 06/09/25 10:30 B.parapertussis DNA PCR Not Detected (NotDetected) 06/09/25 10:30 C. pneumoniae DNA (PCR) Not Detected (NotDetected) 06/09/25 10:30 Coronavirus OC43 (PCR) Not Detected (NotDetected) 06/09/25 10:30 Coronavirus HKU1 (PCR) Not Detected (NotDetected) 06/09/25 10:30 Coronavirus 229E (PCR) Not Detected (NotDetected) 06/09/25 10:30 SARS-CoV-2 (PCR) Not Detected (NotDetected) 06/09/25 10:30 Coronavirus NL63 (PCR) Not Detected (NotDetected) 06/09/25 10:30 Human Metapneumovir PCR Not Detected (NotDetected) 06/09/25 10:30 Influenza Type A (PCR) Not Detected (NotDetected) 06/09/25 10:30 Influenza Type B (PCR) Not Detected (NotDetected) 06/09/25 10:30 M. pneumoniae (PCR) Not Detected (NotDetected) 06/09/25 10:30 Parainfluenza 1 (PCR) Not Detected (NotDetected) 06/09/25 10:30 Parainfluenza 2 (PCR) Not Detected (NotDetected) 06/09/25 10:30 Parainfluenza 3 (PCR) Not Detected (NotDetected) 06/09/25 10:30 Parainfluenza 4 (PCR) Not Detected (NotDetected) 06/09/25 10:30 RSV (PCR) Not Detected (NotDetected) 06/09/25 10:30 Entero/Rhino (PCR) Not Detected (NotDetected) 06/09/25 10:30 Impressions Chest X-Ray 06/09/25 11:07 EXAM: Radiograph of the Chest 1 View INDICATION: Dyspnea. TECHNIQUE: Frontal view of the chest. COMPARISON: 07/31/2021 FINDINGS: Lungs and pleural spaces: Stable right basilar scarring. No consolidation or pulmonary edema. No pleural effusion or pneumothorax. Heart: Shape and configuration within normal limits allowing for technique. Mediastinum: Normal contour. Bones/joints: No fracture, erosion or dislocation. Soft tissues: No abnormality noted. No radiopaque foreign body noted. Upper abdomen: No abnormality noted. IMPRESSION: Stable chronic changes. No acute disease. ACT 112: N/A Electronically signed by Renae Mcfarland 06-09-2025 12:07 PM Code Status & VTE Plan Code Status Full code VTE Prophylaxis Plan VTE Prophylaxis will be ordered: Yes PG Care Time/CCT Total # of Minutes Spent Total Time Spent with Patient: Total time spent is greater than 50% in coordination of care (as documented) at patient's floor/unit and/or counseling patient: Coding Level of Care Code 09752 INT INP/OBS CARE 3/75MIN Diagnoses Acute UTI (urinary tract infection) N39.0 Sepsis A41.9 Acute kidney injury N17.9 Elevated troponin R79.89
[2025-06-09] MEDS: VANCOMYCIN HCL 2,000 MG in SODIUM CHLORIDE 0.9% 500 ML IV ONE (13:29)
[2025-06-09 13:34] LABS: Appearance Urine Cloudy (Clear); Bacteria Urine Automated 4+ (None Seen); Cast Urine Automated >20 /lpf (0-2); Glucose Urine UA Negative (Negative); RBC Urine Automated 0-2 /hpf (0-2)
[2025-06-09] MEDS ORDERED: DEXTROSE 50% 50 ML SYRINGE IV PRN (13:47)
[2025-06-09] MEDS ORDERED: GLUCOSE 40% GEL 15 GM TUBE PO PRN (13:47)
[2025-06-09] MEDS ORDERED: GLUCAGON FOR INJ 1 MG VIAL SQ PRN (13:47)
[2025-06-09] MEDS ORDERED: GLUCOSE 10 TAB/TUBE PO PRN (13:47)
[2025-06-09] MEDS ORDERED: CARBOHYDRATES FOR HYPOGLYCEMIA PO PRN (13:47)
[2025-06-09] MEDS: MAGNESIUM SULFATE / D5W 1 GM/100 ML BAG IV ONE (14:16)
[2025-06-09] MEDS: SODIUM CHLORIDE 0.9% 500 ML IV ONE (14:16)
[2025-06-09] MEDS: POTASSIUM CHLORIDE CRTAB 20 MEQ TABCR PO STA (14:17)
[2025-06-09] MEDS ORDERED: ONDANSETRON INJ 2 MG/ML 2 ML VIAL IV PRN (15:48)
[2025-06-09] MEDS ORDERED: ALBUTEROL HFA 8 GM INHALER INH PRN (15:48)
--- NOTE | 2025-06-09 16:02 | Pharmacy Report ---
Pharmacy PK ABX Note - Date of Service June 09, 2025 - Assessment and Plan Assessment 74 year old F receiving VANCOMYCIN/CEFTRIAXONE for empiric sepsis treatment. Possible UTI. Pertinent microbiologic data includes: MRSA swab negative, blood cultures, urine cultures pending. Hypotensive, tachycardic, afebrile, leukocytosis, elevated procalcitonin. Plan Vancomycin * Loading dose: 2000 mg IV x 1 * Maintenance dose: 1250 mg IV every 24 hours * Regimen is predicted to achieve target AUC/NINA of 400-600 mg/L.hr * Random level to be ordered if continued greater than 48 hours Pharmacy will continue to follow and will adjust dose/frequency as necessary. Thank you. Pharmacy has transitioned to AUC monitoring for vancomycin. AUC/NINA is the preferred PK/PD target and is associated with decreased risk of nephrotoxicity compared to traditional trough targets.
[2025-06-09] MEDS: SODIUM CHLORIDE 0.9% 1,000 ML IV SCH (16:52)
[2025-06-09] MEDS: INSULIN ASPART PER UNIT CHARGE SC SCH (17:32)
[2025-06-09] MEDS: POLYETHYLENE (MIRALAX) 17 GM PACK PO PRN (20:36)
[2025-06-09] MEDS: CHOLECALCIFEROL 10 MCG (400 UNITS) TAB PO SCH (20:37)
[2025-06-09] MEDS: MELATONIN 3 MG TAB PO PRN (20:37)
[2025-06-09] MEDS: CALCIUM CARBONATE 1250MG TAB PO SCH (20:38)
[2025-06-09] MEDS: ATORVASTATIN 10 MG TAB PO SCH (20:39)
[2025-06-10 00:04] LABS: A calco-baum cmplx NotReported Not Detected (NotDetected); Bact fragilis Not Reported Not Detected (NotDetected); Blood Culture Id Panel See PCR Comment (NotDetected); C auris Not Reported Not Detected (NotDetected); CTX-M Resistant Gene Not Detected (NotDetected); Calbicans Not Reported Not Detected (NotDetected); Candida glabrata Not Reported Not Detected (NotDetected); Candida krusei Not Reported Not Detected (NotDetected); Cneoformans/gatti Not Reported Not Detected (NotDetected); Cparapsilosis Not Reported Not Detected (NotDetected); Ctropicalis Not Reported Not Detected (NotDetected); E cloacae compx Not Reported Not Detected (NotDetected); Efaecalis Not Reported Not Detected (NotDetected); Efaecium Not Reported Not Detected (NotDetected); Enterobacterales DETECTED (NotDetected); Enterobacterales Not Reported DETECTED (NotDetected); Escherichia coli Not Reported DETECTED (NotDetected); H influenzae Not Reported Not Detected (NotDetected); IMP Resistant Gene Not Detected (NotDetected); K aerogenes Not Reported Not Detected (NotDetected); KPC Resistant Gene Not Detected (NotDetected); Koxytoca Not Reported Not Detected (NotDetected); Kpneumoniae grp Not Reported Not Detected (NotDetected); Lmonocyt Not Reported Not Detected (NotDetected); N meningitidis Not Reported Not Detected (NotDetected); NDM Resistant Gene Not Detected (NotDetected); OXA 48 Like Resistant Gene Not Detected (NotDetected); P aeruginosa Not Reported Not Detected (NotDetected); Proteus spp Not Reported Not Detected (NotDetected); Salmonella spp Not Reported Not Detected (NotDetected); Staph lugdunensis Not Reported Not Detected (NotDetected); Staph spp. Not Reported Not Detected (NotDetected); Staphaureus Not Reported Not Detected (NotDetected); Staphepi Not Reported Not Detected (NotDetected); Stenmaltophilia Not Reported Not Detected (NotDetected); Strep agal(GrpB) Not Reported Not Detected (NotDetected); Strep pneum Not Reported Not Detected (NotDetected); Strep pyog (GrpA) Not Reported Not Detected (NotDetected); Strep spp Not Reported Not Detected (NotDetected); VIM Resistant Gene Not Detected (NotDetected); mcr-1 Colistin Resistant Gene Not Detected (NotDetected)
[2025-06-10] MEDS: VANCOMYCIN HCL 1,250 MG in SODIUM CHLORIDE 0.9% 250 ML IV SCH (05:43)
[2025-06-10 05:57] LABS: Alanine Aminotransferase 30.0 U/L (7-52); Albumin Globulin Ratio 0.9 (0.9-2); Alkaline Phosphatase 78.0 U/L (34-104); Anion Gap 6.0 (3-11); Bilirubin,Total 0.3 mg/dl (0.2-1.0); Blood Urea Nitrogen 14.0 mg/dl (6-23); Calcium 8.6 mg/dl (8.6-10.3); Carbon Dioxide 27.0 mmol/L (21-32); Chloride 105.0 mmol/L (98-107); Creatinine Clr Calc Pharmacy 74.3 ml/min; Globulin 3.1 gm/dl (2.5-4.0); Glucose 116.0 mg/dl (70-99(Fasting)); Magnesium 1.9 mg/dl (1.7-2.4); Potassium 4.0 mmol/L (3.5-5.1); Sodium 138.0 mmol/L (136-145); Total Protein 6.0 gm/dl (6.0-8.3)
[2025-06-10 06:35] LABS: Hematocrit (blood only) 34.6 % (37.0-47.0); Hemoglobin 11.2 g/dl (12.0-16.0); Immature Granulocytes # (auto) 0.10 K/uL (0.01-0.20); Immature Granulocytes % (auto) 0.6 %; Mean Corpuscular Hemoglobin 29.2 pg (25.0-34.0); Mean Corpuscular Volume 90.3 fL (80.0-100.0); Platelet Count 200 K/uL (130-400); RDW Standard Deviation 44.4 fL (36.4-46.3); Red Blood Count 3.83 M/uL (4.20-5.40); White Blood Count 16.67 K/ul (4.8-10.8)
[2025-06-10 07:19] LABS: Hemoglobin A1C 6.3 % (4.5-5.6)
--- NOTE | 2025-06-10 08:07 | Hospitalist Progress Note ---
Date of Service June 10, 2025 Assessment & Plan (1) Sepsis: (2) Acute UTI (urinary tract infection): (3) Bacteremia: (4) Acute kidney injury: (5) Elevated troponin: Plan The patient is a 74-year-old female with a past medical history including asthma, right breast cancer, diabetes mellitus type 2, hypertension, dyslipidemia, degenerative joint disease,, migraine without aura, and history of pyelonephritis presented to ER with fever/chills x 4 days similar to when she had pyelonephritis in the past. No back pain reported but UA appearing infected. She reports that she has been taking Ozempic since February, and occasionally has upset stomach that she attributes to this medication. #Sepsis/hypotension- #Bacteremia- suspected 2nd to urinary source with +UA on admission WBC 18.9k, tachycardic with O2 requirement on admission, hx asthma. CXR negative for acute PNA/biofire negative. Procal 87.5, lactic wnl. LUCITA w/ Cr 1.25 w/ normal baseline Continues on Vancomycin, Ceftriaxone for now WBC 18.9--> 16.7k. Afebrile Blood cultures obtained given procalcitonin --> Bcx with gram negative bacilli on 06/10 all bottles. ID PCR with enterobacter/ecoli species. Will plan to repeat for tomorrow for 48hr to ensure clearance s/p 3L IVF in ER, continued on NS but LUCITA resolved and tolerating PO and will discontinue further/PO hydration encouraged Titrated off oxygen, on room air at present Defer ECHO given no CP reports and rapid improvement in troponin on checks as suspected elevation 2nd to infection/sepsis/hypotension above. Verapamil on hold but will resume w/ HR and improvement in BP PT/OT consults pending Follow cultures/sensitives Monitor labs in AM #LUCITA, hypokalemia/hypomagnesemia - Cr bump 1.25 baseline 0.73 in setting hypotension/sepsis/suspected UTI and celebrex use resolved w/ abx/IVF and electrolyte replacement celebrex remains on hold IVF have been discontinued. Monitor BMP on repeat #Elevated troponin- Initial troponin 189.5 --> 100.1--> 69.2 Consideration for echo however blood cx GNB and defer at this time given no CP complaints. Monitor to obtain if any issues Telemonitoring #Diabetes mellitus- A1c well controlled 6.3 on check. Holding home metformin/ozempic and BSGs stable on SSI and will monitor to adjust #migraine- hx of such, no issues at present verapamil held w/ hypotension but suspect on for hx migraines and given improved/stable BP 132/78 and HR 97 have been resumed. Monitor to hold if any issues. DVT proph: added Lovenox SQ given inpatient stay, SCDs ordered on admission Dispo: continued inpatient stay on IV abx/monitoring cultures. PT/OT consults have been placed and plan for repeat blood cultures to ensure clearance. Can downgrade off tele if no issues overnight Admission and Anticipated Discharge Date Admission Date: June 09, 2025 Supervising Physician Co-Signing Physician Notes The patient was not seen by me. The chart was reviewed. Case discussed with ANN MARIE Vinson. Agree with assessment and plan Subjective Patient evaluated this morning, laying in bed. Fatigued but feels a little better. Appetite improved and renal function back to baseline. Will stop IVF, she is thankful for such. Discussed blood cultures positive, will plan to repeat tomorrow. Hx asthma, uses anoro inhaler, albuterol if needed, titrating to room air. No diarrhea but monitoring with continued antibiotics. No back pain but did have fever/chills similar to when had pyelo. Therapy to see today vs tomorrow. Questions/concerns addressed at this time. Physical Exam Physical Exam: General: 74yo obese female laying in bed, NAD, fatigued appearing HEENT: head atraumatic, normocephalic, mmm, trachea midline Resp: even, diminished in the bases, no overt wheezing/rales, on room air CV: regular, tachy to low 100s at times but currently 90s, no significant m/r/g, no pitting edema, pulses present GI: +BS, obese, soft, no overt tenderness, suprapubic fullness/discomfort improved MSK/Neuro: generalized weakness but nonfocal Psych: AOx3, cooperative with exam . Results & Data Results & Data Vital Signs (Past 12 Hours) Vital Signs Temp Pulse Pulse Resp BP Pulse Ox O2 Del Method 06/10/25 07:22 37.1 C 95 H 23 132/78 94 Nasal Cannula 06/10/25 03:00 37.2 C 99 H 28 H 144/83 H 94 Nasal Cannula 06/09/25 23:40 37 C 95 H 26 H 124/72 92 Nasal Cannula 06/09/25 22:52 94 H 06/09/25 22:05 Nasal Cannula O2 Flow Rate 06/10/25 07:22 1 06/10/25 03:00 1 06/09/25 23:40 1 06/09/25 22:52 06/09/25 22:05 1 Laboratory Results 06/10/25 06/10/25 06/09/25 Range/Units 07:48 04:48 20:34 WBC 16.67 H (4.8-10.8) K/ul RBC 3.83 L (4.20-5.40) M/uL Hgb 11.2 L D (12.0-16.0) g/dl Hct 34.6 L (37.0-47.0) % MCV 90.3 (80.0-100.0) fL MCH 29.2 (25.0-34.0) pg MCHC 32.4 (32.0-36.0) g/dL RDW Std Deviation 44.4 (36.4-46.3) fL RDW Coeff of Deidre 13.3 (11.5-14.5) % Plt Count 200 (130-400) K/uL MPV 10.4 (9.4-12.4) fL Immature Gran % (Auto) 0.6 % Neut % (Auto) 82.0 % Lymph % (Auto) 5.8 % Spalding % (Auto) 10.7 % Eos % (Auto) 0.7 % Baso % (Auto) 0.2 % Neut # (Auto) 13.66 H (1.40-6.50) K/uL Lymph # (Auto) 0.97 L (1.20-3.40) K/uL Spalding # (Auto) 1.79 H (0.11-0.59) K/uL Eos # (Auto) 0.12 (0.00-0.50) K/uL Baso # (Auto) 0.03 (0.00-0.20) K/uL Immature Gran # (Auto) 0.10 (0.01-0.20) K/uL Toxic Vacuolation PT (9.0-12.0) Seconds INR (0.9-1.1) Sodium 138 (136-145) mmol/L Potassium 4.0 D (3.5-5.1) mmol/L Chloride 105 (98-107) mmol/L Carbon Dioxide 27 (21-32) mmol/L Anion Gap 6 (3-11) BUN 14 (6-23) mg/dl Creatinine 0.77 D (0.6-1.2) mg/dl Est Cr Clr Drug Dosing 74.3 ml/min eGFR 81.91 BUN/Creatinine Ratio 18.2 (10-20) Glucose 116 H (70-99(Fasting)) mg/dl POC Glucose 112 H 103 H (70-99) mg/dl Estimat Average Glucose 134 mg/dl Hemoglobin A1c 6.3 H (4.5-5.6) % Lactate (0.4-2.0) mmol/L Calcium 8.6 (8.6-10.3) mg/dl Magnesium 1.9 (1.7-2.4) mg/dl Total Bilirubin 0.3 (0.2-1.0) mg/dl AST 36 (13-39) U/L ALT 30 (7-52) U/L Alkaline Phosphatase 78 (34-104) U/L Troponin I High Sens 69.2 H* D (0-14) pg/ml B-Natriuretic Peptide (0-100) pg/ml Total Protein 6.0 (6.0-8.3) gm/dl Albumin 2.9 L (3.4-5.0) gm/dl Globulin 3.1 (2.5-4.0) gm/dl Albumin/Globulin Ratio 0.9 (0.9-2) Procalcitonin (0-0.5) ng/ml Urine Color Urine Appearance (Clear) Urine pH (4.5-7.5) Ur Specific Spivey (1.000-1.030) Urine Protein (Negative) Urine Glucose (UA) (Negative) Urine Ketones (Negative) Urine Blood (Negative) Urine Nitrite (Negative) Urine Bilirubin (Negative) Urine Urobilinogen (Negative) Ur Leukocyte Esterase (Negative) Urine WBC (Auto) (0-5) /hpf Urine RBC (Auto) (0-2) /hpf U Hyaline Cast (Auto) (0-2) /lpf U Epithel Cells (Auto) (0-2) /hpf Urine Bacteria (Auto) (None Seen) Hyaline Casts (None Presnt) /lpf Urine Comment Nasal Screen MRSA (PCR) (Negative) Adenovirus (PCR) (NotDetected) B. pertussis DNA (PCR) (NotDetected) B.parapertussis DNA PCR (NotDetected) C. pneumoniae DNA (PCR) (NotDetected) Coronavirus OC43 (PCR) (NotDetected) Coronavirus HKU1 (PCR) (NotDetected) Coronavirus 229E (PCR) (NotDetected) SARS-CoV-2 (PCR) (NotDetected) Coronavirus NL63 (PCR) (NotDetected) Enterobacterales (PCR) (NotDetected) E. coli (PCR) (NotDetected) Human Metapneumovir PCR (NotDetected) Influenza Type A (PCR) (NotDetected) Influenza Type B (PCR) (NotDetected) M. pneumoniae (PCR) (NotDetected) Parainfluenza 1 (PCR) (NotDetected) Parainfluenza 2 (PCR) (NotDetected) Parainfluenza 3 (PCR) (NotDetected) Parainfluenza 4 (PCR) (NotDetected) RSV (PCR) (NotDetected) Entero/Rhino (PCR) (NotDetected) mcr-1 Colistin Res Gene PCR (NotDetected) blaIMP Car res Gene PCR (NotDetected) KPC-Carbap Res Gene PCR (NotDetected) blaNDM Car Res Gene PCR (NotDetected) OXA-48 Carbapenem Resis Gene (PCR) (NotDetected) blaVIM Car Res Gene PCR (NotDetected) CTX-M Gene Resistance (PCR) (NotDetected) Bld Cult ID Panel PCR (NotDetected) 06/09/25 06/09/25 06/09/25 Range/Units 16:29 13:54 13:53 WBC (4.8-10.8) K/ul RBC (4.20-5.40) M/uL Hgb (12.0-16.0) g/dl Hct (37.0-47.0) % MCV (80.0-100.0) fL MCH (25.0-34.0) pg MCHC (32.0-36.0) g/dL RDW Std Deviation (36.4-46.3) fL RDW Coeff of Deidre (11.5-14.5) % Plt Count (130-400) K/uL MPV (9.4-12.4) fL Immature Gran % (Auto) % Neut % (Auto) % Lymph % (Auto) % Spalding % (Auto) % Eos % (Auto) % Baso % (Auto) % Neut # (Auto) (1.40-6.50) K/uL Lymph # (Auto) (1.20-3.40) K/uL Spalding # (Auto) (0.11-0.59) K/uL Eos # (Auto) (0.00-0.50) K/uL Baso # (Auto) (0.00-0.20) K/uL Immature Gran # (Auto) (0.01-0.20) K/uL Toxic Vacuolation PT (9.0-12.0) Seconds INR (0.9-1.1) Sodium (136-145) mmol/L Potassium (3.5-5.1) mmol/L Chloride (98-107) mmol/L Carbon Dioxide (21-32) mmol/L Anion Gap (3-11) BUN (6-23) mg/dl Creatinine (0.6-1.2) mg/dl Est Cr Clr Drug Dosing ml/min eGFR BUN/Creatinine Ratio (10-20) Glucose (70-99(Fasting)) mg/dl POC Glucose 160 H 162 H (70-99) mg/dl Estimat Average Glucose mg/dl Hemoglobin A1c (4.5-5.6) % Lactate (0.4-2.0) mmol/L Calcium (8.6-10.3) mg/dl Magnesium (1.7-2.4) mg/dl Total Bilirubin (0.2-1.0) mg/dl AST (13-39) U/L ALT (7-52) U/L Alkaline Phosphatase (34-104) U/L Troponin I High Sens 100.1 H* D (0-14) pg/ml B-Natriuretic Peptide (0-100) pg/ml Total Protein (6.0-8.3) gm/dl Albumin (3.4-5.0) gm/dl Globulin (2.5-4.0) gm/dl Albumin/Globulin Ratio (0.9-2) Procalcitonin (0-0.5) ng/ml Urine Color Urine Appearance (Clear) Urine pH (4.5-7.5) Ur Specific Spivey (1.000-1.030) Urine Protein (Negative) Urine Glucose (UA) (Negative) Urine Ketones (Negative) Urine Blood (Negative) Urine Nitrite (Negative) Urine Bilirubin (Negative) Urine Urobilinogen (Negative) Ur Leukocyte Esterase (Negative) Urine WBC (Auto) (0-5) /hpf Urine RBC (Auto) (0-2) /hpf U Hyaline Cast (Auto) (0-2) /lpf U Epithel Cells (Auto) (0-2) /hpf Urine Bacteria (Auto) (None Seen) Hyaline Casts (None Presnt) /lpf Urine Comment Nasal Screen MRSA (PCR) (Negative) Adenovirus (PCR) (NotDetected) B. pertussis DNA (PCR) (NotDetected) B.parapertussis DNA PCR (NotDetected) C. pneumoniae DNA (PCR) (NotDetected) Coronavirus OC43 (PCR) (NotDetected) Coronavirus HKU1 (PCR) (NotDetected) Coronavirus 229E (PCR) (NotDetected) SARS-CoV-2 (PCR) (NotDetected) Coronavirus NL63 (PCR) (NotDetected) Enterobacterales (PCR) (NotDetected) E. coli (PCR) (NotDetected) Human Metapneumovir PCR (NotDetected) Influenza Type A (PCR) (NotDetected) Influenza Type B (PCR) (NotDetected) M. pneumoniae (PCR) (NotDetected) Parainfluenza 1 (PCR) (NotDetected) Parainfluenza 2 (PCR) (NotDetected) Parainfluenza 3 (PCR) (NotDetected) Parainfluenza 4 (PCR) (NotDetected) RSV (PCR) (NotDetected) Entero/Rhino (PCR) (NotDetected) mcr-1 Colistin Res Gene PCR (NotDetected) blaIMP Car res Gene PCR (NotDetected) KPC-Carbap Res Gene PCR (NotDetected) blaNDM Car Res Gene PCR (NotDetected) OXA-48 Carbapenem Resis Gene (PCR) (NotDetected) blaVIM Car Res Gene PCR (NotDetected) CTX-M Gene Resistance (PCR) (NotDetected) Bld Cult ID Panel PCR (NotDetected) 06/09/25 06/09/25 06/09/25 Range/Units 13:18 13:04 12:13 WBC (4.8-10.8) K/ul RBC (4.20-5.40) M/uL Hgb (12.0-16.0) g/dl Hct (37.0-47.0) % MCV (80.0-100.0) fL MCH (25.0-34.0) pg MCHC (32.0-36.0) g/dL RDW Std Deviation (36.4-46.3) fL RDW Coeff of Deidre (11.5-14.5) % Plt Count (130-400) K/uL MPV (9.4-12.4) fL Immature Gran % (Auto) % Neut % (Auto) % Lymph % (Auto) % Spalding % (Auto) % Eos % (Auto) % Baso % (Auto) % Neut # (Auto) (1.40-6.50) K/uL Lymph # (Auto) (1.20-3.40) K/uL Spalding # (Auto) (0.11-0.59) K/uL Eos # (Auto) (0.00-0.50) K/uL Baso # (Auto) (0.00-0.20) K/uL Immature Gran # (Auto) (0.01-0.20) K/uL Toxic Vacuolation PT (9.0-12.0) Seconds INR (0.9-1.1) Sodium (136-145) mmol/L Potassium (3.5-5.1) mmol/L Chloride (98-107) mmol/L Carbon Dioxide (21-32) mmol/L Anion Gap (3-11) BUN (6-23) mg/dl Creatinine (0.6-1.2) mg/dl Est Cr Clr Drug Dosing ml/min eGFR BUN/Creatinine Ratio (10-20) Glucose (70-99(Fasting)) mg/dl POC Glucose (70-99) mg/dl Estimat Average Glucose mg/dl Hemoglobin A1c (4.5-5.6) % Lactate (0.4-2.0) mmol/L Calcium (8.6-10.3) mg/dl Magnesium (1.7-2.4) mg/dl Total Bilirubin (0.2-1.0) mg/dl AST (13-39) U/L ALT (7-52) U/L Alkaline Phosphatase (34-104) U/L Troponin I High Sens (0-14) pg/ml B-Natriuretic Peptide (0-100) pg/ml Total Protein (6.0-8.3) gm/dl Albumin (3.4-5.0) gm/dl Globulin (2.5-4.0) gm/dl Albumin/Globulin Ratio (0.9-2) Procalcitonin 87.50 H (0-0.5) ng/ml Urine Color Yellow Urine Appearance Cloudy A (Clear) Urine pH 5.5 (4.5-7.5) Ur Specific Spivey 1.015 (1.000-1.030) Urine Protein 2+ H (Negative) Urine Glucose (UA) Negative (Negative) Urine Ketones Trace H (Negative) Urine Blood 1+ H (Negative) Urine Nitrite Negative (Negative) Urine Bilirubin Negative (Negative) Urine Urobilinogen Negative (Negative) Ur Leukocyte Esterase 1+ H (Negative) Urine WBC (Auto) 6-10 H (0-5) /hpf Urine RBC (Auto) 0-2 (0-2) /hpf U Hyaline Cast (Auto) >20 H (0-2) /lpf U Epithel Cells (Auto) 11-20 H (0-2) /hpf Urine Bacteria (Auto) 4+ H (None Seen) Hyaline Casts Present A (None Presnt) /lpf Urine Comment Nasal Screen MRSA (PCR) Negative (Negative) Adenovirus (PCR) (NotDetected) B. pertussis DNA (PCR) (NotDetected) B.parapertussis DNA PCR (NotDetected) C. pneumoniae DNA (PCR) (NotDetected) Coronavirus OC43 (PCR) (NotDetected) Coronavirus HKU1 (PCR) (NotDetected) Coronavirus 229E (PCR) (NotDetected) SARS-CoV-2 (PCR) (NotDetected) Coronavirus NL63 (PCR) (NotDetected) Enterobacterales (PCR) DETECTED A (NotDetected) E. coli (PCR) DETECTED A (NotDetected) Human Metapneumovir PCR (NotDetected) Influenza Type A (PCR) (NotDetected) Influenza Type B (PCR) (NotDetected) M. pneumoniae (PCR) (NotDetected) Parainfluenza 1 (PCR) (NotDetected) Parainfluenza 2 (PCR) (NotDetected) Parainfluenza 3 (PCR) (NotDetected) Parainfluenza 4 (PCR) (NotDetected) RSV (PCR) (NotDetected) Entero/Rhino (PCR) (NotDetected) mcr-1 Colistin Res Gene PCR Not Detected (NotDetected) blaIMP Car res Gene PCR Not Detected (NotDetected) KPC-Carbap Res Gene PCR Not Detected (NotDetected) blaNDM Car Res Gene PCR Not Detected (NotDetected) OXA-48 Carbapenem Resis Gene (PCR) Not Detected (NotDetected) blaVIM Car Res Gene PCR Not Detected (NotDetected) CTX-M Gene Resistance (PCR) Not Detected (NotDetected) Bld Cult ID Panel PCR See PCR Comment (NotDetected) 06/09/25 06/09/25 06/09/25 Range/Units 11:45 10:32 10:30 WBC 18.99 H (4.8-10.8) K/ul RBC 4.87 (4.20-5.40) M/uL Hgb 14.2 (12.0-16.0) g/dl Hct 44.0 (37.0-47.0) % MCV 90.3 (80.0-100.0) fL MCH 29.2 (25.0-34.0) pg MCHC 32.3 (32.0-36.0) g/dL RDW Std Deviation 44.1 (36.4-46.3) fL RDW Coeff of Deidre 13.3 (11.5-14.5) % Plt Count 219 (130-400) K/uL MPV 10.2 (9.4-12.4) fL Immature Gran % (Auto) 0.9 % Neut % (Auto) 93.8 % Lymph % (Auto) 1.7 % Spalding % (Auto) 3.1 % Eos % (Auto) 0.2 % Baso % (Auto) 0.3 % Neut # (Auto) 17.82 H (1.40-6.50) K/uL Lymph # (Auto) 0.33 L (1.20-3.40) K/uL Spalding # (Auto) 0.58 (0.11-0.59) K/uL Eos # (Auto) 0.04 (0.00-0.50) K/uL Baso # (Auto) 0.05 (0.00-0.20) K/uL Immature Gran # (Auto) 0.17 (0.01-0.20) K/uL Toxic Vacuolation 1+ PT 11.2 (9.0-12.0) Seconds INR 1.0 (0.9-1.1) Sodium 136 (136-145) mmol/L Potassium 3.2 L (3.5-5.1) mmol/L Chloride 100 (98-107) mmol/L Carbon Dioxide 25 (21-32) mmol/L Anion Gap 11 (3-11) BUN 17 (6-23) mg/dl Creatinine 1.25 H (0.6-1.2) mg/dl Est Cr Clr Drug Dosing 45.8 ml/min eGFR 45.80 BUN/Creatinine Ratio 13.6 (10-20) Glucose 173 H (70-99(Fasting)) mg/dl POC Glucose (70-99) mg/dl Estimat Average Glucose mg/dl Hemoglobin A1c (4.5-5.6) % Lactate 1.7 (0.4-2.0) mmol/L Calcium 9.2 (8.6-10.3) mg/dl Magnesium 1.7 (1.7-2.4) mg/dl Total Bilirubin 0.7 (0.2-1.0) mg/dl AST 36 (13-39) U/L ALT 29 (7-52) U/L Alkaline Phosphatase 107 H (34-104) U/L Troponin I High Sens 189.5 H* (0-14) pg/ml B-Natriuretic Peptide 69 (0-100) pg/ml Total Protein 7.2 (6.0-8.3) gm/dl Albumin 3.5 (3.4-5.0) gm/dl Globulin 3.7 (2.5-4.0) gm/dl Albumin/Globulin Ratio 0.9 (0.9-2) Procalcitonin (0-0.5) ng/ml Urine Color Urine Appearance (Clear) Urine pH (4.5-7.5) Ur Specific Spivey (1.000-1.030) Urine Protein (Negative) Urine Glucose (UA) (Negative) Urine Ketones (Negative) Urine Blood (Negative) Urine Nitrite (Negative) Urine Bilirubin (Negative) Urine Urobilinogen (Negative) Ur Leukocyte Esterase (Negative) Urine WBC (Auto) (0-5) /hpf Urine RBC (Auto) (0-2) /hpf U Hyaline Cast (Auto) (0-2) /lpf U Epithel Cells (Auto) (0-2) /hpf Urine Bacteria (Auto) (None Seen) Hyaline Casts (None Presnt) /lpf Urine Comment Nasal Screen MRSA (PCR) (Negative) Adenovirus (PCR) Not Detected (NotDetected) B. pertussis DNA (PCR) Not Detected (NotDetected) B.parapertussis DNA PCR Not Detected (NotDetected) C. pneumoniae DNA (PCR) Not Detected (NotDetected) Coronavirus OC43 (PCR) Not Detected (NotDetected) Coronavirus HKU1 (PCR) Not Detected (NotDetected) Coronavirus 229E (PCR) Not Detected (NotDetected) SARS-CoV-2 (PCR) Not Detected (NotDetected) Coronavirus NL63 (PCR) Not Detected (NotDetected) Enterobacterales (PCR) (NotDetected) E. coli (PCR) (NotDetected) Human Metapneumovir PCR Not Detected (NotDetected) Influenza Type A (PCR) Not Detected (NotDetected) Influenza Type B (PCR) Not Detected (NotDetected) M. pneumoniae (PCR) Not Detected (NotDetected) Parainfluenza 1 (PCR) Not Detected (NotDetected) Parainfluenza 2 (PCR) Not Detected (NotDetected) Parainfluenza 3 (PCR) Not Detected (NotDetected) Parainfluenza 4 (PCR) Not Detected (NotDetected) RSV (PCR) Not Detected (NotDetected) Entero/Rhino (PCR) Not Detected (NotDetected) mcr-1 Colistin Res Gene PCR (NotDetected) blaIMP Car res Gene PCR (NotDetected) KPC-Carbap Res Gene PCR (NotDetected) blaNDM Car Res Gene PCR (NotDetected) OXA-48 Carbapenem Resis Gene (PCR) (NotDetected) blaVIM Car Res Gene PCR (NotDetected) CTX-M Gene Resistance (PCR) (NotDetected) Bld Cult ID Panel PCR (NotDetected) PG Care Time/CCT Total # of Minutes Spent Total Time Spent with Patient: Total time spent is greater than 50% in coordination of care (as documented) at patient's floor/unit and/or counseling patient: Coding Level of Care Code 52733 SUB INP/OBS CARE 3/50MIN Diagnoses Sepsis A41.9 Acute UTI (urinary tract infection) N39.0 Bacteremia R78.81 Acute kidney injury N17.9 Elevated troponin R79.89
[2025-06-10] MEDS: cefTRIAXone SODIUM 2,000 MG/50 ML BAG IV SCH (08:44)
[2025-06-10] MEDS: ACETAMINOPHEN 325 MG TAB PO PRN (08:45)
[2025-06-10] MEDS: FLUTICASONE FUROATE 100MCG 14 PUFFS/INHALER INH SCH (08:45)
[2025-06-10] MEDS: SENNA 8.6 MG TAB PO SCH (08:45)
[2025-06-10] MEDS: VERAPAMIL HCL 240 MG TABCR PO SCH (12:23)
[2025-06-10] MEDS: ENOXAPARIN INJ 40 MG/0.4 ML SYR SQ SCH (12:25)
[2025-06-10] MEDS: VENLAFAXINE HCL XR 75 MG CAPXR PO SCH (21:42)
[2025-06-11 06:18] LABS: Hematocrit (blood only) 35.7 % (37.0-47.0); Hemoglobin 11.5 g/dl (12.0-16.0); Immature Granulocytes # (auto) 0.05 K/uL (0.01-0.20); Immature Granulocytes % (auto) 0.5 %; Mean Corpuscular Hemoglobin 29.2 pg (25.0-34.0); Mean Corpuscular Volume 90.6 fL (80.0-100.0); Platelet Count 230 K/uL (130-400); RDW Standard Deviation 44.9 fL (36.4-46.3); Red Blood Count 3.94 M/uL (4.20-5.40); White Blood Count 10.67 K/ul (4.8-10.8)
[2025-06-11 06:38] LABS: Alanine Aminotransferase 39.0 U/L (7-52); Albumin Globulin Ratio 1.0 (0.9-2); Alkaline Phosphatase 98.0 U/L (34-104); Anion Gap 5.0 (3-11); Bilirubin,Total 0.3 mg/dl (0.2-1.0); Blood Urea Nitrogen 13.0 mg/dl (6-23); Calcium 8.7 mg/dl (8.6-10.3); Carbon Dioxide 32.0 mmol/L (21-32); Chloride 105.0 mmol/L (98-107); Creatinine Clr Calc Pharmacy 83.7 ml/min; Globulin 3.0 gm/dl (2.5-4.0); Glucose 104.0 mg/dl (70-99(Fasting)); Magnesium 1.9 mg/dl (1.7-2.4); Potassium 3.8 mmol/L (3.5-5.1); Sodium 142.0 mmol/L (136-145); Total Protein 6.1 gm/dl (6.0-8.3)
--- NOTE | 2025-06-11 10:18 | Electrocardiogram Report ---
Test Reason : Blood Pressure : */* mmHG Vent. Rate : 94 BPM Atrial Rate : 94 BPM P-R Int : 140 ms QRS Dur : 78 ms QT Int : 378 ms P-R-T Axes : 37 25 44 degrees QTcB Int : 472 ms Normal sinus rhythm Normal ECG When compared with ECG of 31-Jul-2021 01:54, No significant change was found Confirmed by Broderick Holbrook ([id number]) on 06/11/2025 10:17:41 AM Referred By: Cleve Soriano Confirmed By: Broderick Holbrook
--- NOTE | 2025-06-11 10:49 | Electrocardiogram Report ---
Test Reason : Blood Pressure : */* mmHG Vent. Rate : 98 BPM Atrial Rate : 98 BPM P-R Int : 150 ms QRS Dur : 76 ms QT Int : 372 ms P-R-T Axes : 52 31 51 degrees QTcB Int : 474 ms Normal sinus rhythm Normal ECG When compared with ECG of 09-Jun-2025 11:27, (unconfirmed) No significant change was found Confirmed by Broderick Holbrook ([id number]) on 06/11/2025 10:49:19 AM Referred By: Cleve Soriano Confirmed By: Broderick Holbrook
--- NOTE | 2025-06-11 11:09 | Hospitalist Progress Note ---
Date of Service June 11, 2025 Assessment & Plan (1) Sepsis: (2) Acute UTI (urinary tract infection): (3) Bacteremia: (4) Elevated troponin: Plan This patient is a 74-year-old female with a H/O asthma, right breast cancer s/p radiation, DM type 2, HTN, HLD, OA, migraine without aura, and history of pyelonephritis who P/W fever/chills x 4 days similar to when she had pyelonephritis in the past. No back pain reported but UA appearing infected. Since admission has been found to have E. coli septicemia and UTI. # E. coli septicemia/UTI- CXR negative for acute PNA/biofire negative.Procal 87.5, lactic wnl. LUCITA w/ Cr 1.25 w/ normal baseline. Blood cultures with pansensitive E. coli, urine culture with E. coli with sensitivities pending. Much improved now with normal vital signs, leukocytosis resolved, and only low- grade residual temperature overnight 06/11. Initially treated with broad- spectrum antibiotics with ceftriaxone and vancomycin. - Continue ceftriaxone but vancomycin has since been discontinued - Follow CBC, BMP, and repeat procalcitonin in the morning - No need to recheck blood cultures as she has defervesced and is clinically improved - Plan to treat with transition to oral antibiotics on discharge for total of 10 days #LUCITA, hypokalemia/hypomagnesemia - Cr bump 1.25 baseline 0.73 in setting hypotension/sepsis/suspected UTI and celebrex use. Creatinine now improved to normal after IV fluids -celebrex remains on hold but can likely be resumed on discharge -Follow BMP in the a.m. #Elevated troponin/myocardial demand ischemia in the setting of sepsis- Initial troponin 189.5 --> 100.1--> 69.2. Echo without wall motion abnormalities, no events on telemetry. No chest pain and ECG without ischemic changes - Can downgrade off telemetry # DM2- A1c well controlled 6.3 percent. BSG's stable here - Continue holding home metformin/ozempic - Continue SSI and will monitor to adjust #migraine- hx of such, no issues at present -Continue prophylactic verapamil #Asthma-no acute issues, was requiring O2 but now weaned off - Continue albuterol as needed, maintenance inhaler #Depression/anxiety-no acute issues - Continue home venlafaxine #HLD-no acute issues - Continue home atorvastatin DVT proph: Lovenox SQ, SCDs Dispo: Improving, downgrade to medical/surgical unit, likely discharge to home in the a.m. on 06/12 if continues to do well. She is independent and does not need rehab Admission and Anticipated Discharge Date Admission Date: June 09, 2025 Subjective Patient reports feeling much better and much stronger. She was able to get herself out of bed since last night and walk around the room. Denies chest pain or shortness of breath but notes that people tell her she seems short of breath. She denies nausea or vomiting and is eating well. No diarrhea. She has never had any flank pain back pain or urinary symptoms with this acute illness. D enies any further chills and sweats Telemetry with normal sinus rhythm with rates in the 80s Review of Systems Review of Systems: All systems reviewed & are unremarkable except as noted in HPI & below Physical Exam Constitutional: WD/WN, vitals as above Neck: trachea midline, no thyromegaly Respiratory: normal respiratory effort, lungs clear to auscultation Cardiovascular: RRR, no murmur, no edema Gastrointestinal (Abdomen): normal bowel sounds, soft, nontender, no hepatosplenomegaly Musculoskeletal: Extremities: extremities normal to inspection; no cyanosis and no clubbing Skin: no rashes, warm and dry Neurologic: moves all extremities and awake; no focal motor deficits Psychiatric: A+Ox3, euthymic affect Lymphatic: no lymphedema Results & Data Results & Data Vital Signs (Past 12 Hours) Vital Signs Temp Pulse Pulse Resp BP Pulse Ox O2 Del Method 06/11/25 07:32 36.9 C 87 19 128/70 92 Nasal Cannula 06/11/25 02:57 37.0 C 91 H 16 124/76 94 Nasal Cannula 06/11/25 00:31 106 H 06/11/25 00:16 Nasal Cannula 06/11/25 00:04 37.6 C H 16 132/76 92 Room Air O2 Flow Rate 06/11/25 07:32 1 06/11/25 02:57 1 06/11/25 00:31 06/11/25 00:16 1 06/11/25 00:04 Laboratory Results CBC, CMP, magnesium, blood cultures, urine culture reviewed PG Care Time/CCT Total # of Minutes Spent Total Time Spent with Patient: Total time spent is greater than 50% in coordination of care (as documented) at patient's floor/unit and/or counseling patient: Coding Level of Care Code 03553 SUB INP/OBS CARE 235MIN Diagnoses Sepsis A41.9 Acute UTI (urinary tract infection) N39.0 Bacteremia R78.81 Elevated troponin R79.89
--- NOTE | 2025-06-11 11:18 | Electrocardiogram Report ---
Test Reason : Blood Pressure : */* mmHG Vent. Rate : 86 BPM Atrial Rate : 86 BPM P-R Int : 146 ms QRS Dur : 78 ms QT Int : 386 ms P-R-T Axes : 46 26 46 degrees QTcB Int : 461 ms Normal sinus rhythm Normal ECG When compared with ECG of 10-Jun-2025 05:47, (unconfirmed) No significant change was found Confirmed by Broderick Holbrook ([id number]) on 06/11/2025 11:17:53 AM Referred By: Cleve Soriano Confirmed By: Broderick Holbrook
[2025-06-12 07:21] VITALS: BP 129/72; PULSE 81; RESP 18; TEMP 98.2; O2SAT 94
[2025-06-12 07:33] LABS: Hematocrit (blood only) 38.4 % (37.0-47.0); Hemoglobin 12.7 g/dl (12.0-16.0); Immature Granulocytes # (auto) 0.06 K/uL (0.01-0.20); Immature Granulocytes % (auto) 0.6 %; Mean Corpuscular Hemoglobin 29.1 pg (25.0-34.0); Mean Corpuscular Volume 88.1 fL (80.0-100.0); Platelet Count 275 K/uL (130-400); RDW Standard Deviation 42.7 fL (36.4-46.3); Red Blood Count 4.36 M/uL (4.20-5.40); White Blood Count 9.91 K/ul (4.8-10.8)
[2025-06-12 07:49] LABS: Anion Gap 7.0 (3-11); Blood Urea Nitrogen 14.0 mg/dl (6-23); Calcium 8.8 mg/dl (8.6-10.3); Carbon Dioxide 30.0 mmol/L (21-32); Chloride 105.0 mmol/L (98-107); Creatinine Clr Calc Pharmacy 86.1 ml/min; Glucose 107.0 mg/dl (70-99(Fasting)); Potassium 4.1 mmol/L (3.5-5.1); Sodium 142.0 mmol/L (136-145)
--- NOTE | 2025-06-12 08:58 | Discharge Summary ---
Discharge Summary Date of Service June 12, 2025 Principal Dx & Hospital Course #1 = Principal Diagnosis (1) Sepsis: (2) Acute UTI (urinary tract infection): (3) Bacteremia: (4) Elevated troponin: Plan This patient is a 74-year-old female with a H/O asthma, right breast cancer s/p radiation, DM type 2, HTN, HLD, OA, migraine without aura, and history of pyelonephritis who P/W fever/chills x 4 days similar to when she had pyel onephritis in the past. No back pain reported but UA appearing infected. Since admission has been found to have E. coli septicemia and UTI. # E. coli septicemia/UTI- CXR negative for acute PNA/biofire negative.Procal 87.5, lactic wnl. LUCITA w/ Cr 1.25 w/ normal baseline. Blood cultures and urine cx with pansensitive E. coli. Much improved now with normal vital signs, le ukocytosis resolved, afebrile. Initially treated with broad-spectrum antibiotics with ceftriaxone and vancomycin for 2 days then ceftriaxone alone x another day - dc to home on cefpodoxime 200mg po bid x 6 more days - No need to recheck blood cultures as she has defervesced and is clinically improved #LUCITA, hypokalemia/hypomagnesemia - Cr bump 1.25 baseline 0.73 in setting hypotension/sepsis/suspected UTI and celebrex use. Creatinine now improved to normal after IV fluids -celebrex remains on hold but can be resumed on discharge #Elevated troponin/myocardial demand ischemia in the setting of sepsis- Initial troponin 189.5 --> 100.1--> 69.2. Echo without wall motion abnormalities, no events on telemetry. No chest pain and ECG without ischemic changes, no events on tele # DM2- A1c well controlled 6.3 percent. BSG's stable here - Continue holding home metformin/ozempic but can resume on dc #migraine- hx of such, no issues at present -Continue prophylactic verapamil #Asthma-no acute issues, was requiring O2 but now weaned off - Continue albuterol as needed, maintenance inhaler #Hot flshes-no acute issues - Continue home venlafaxine #HLD-no acute issues - Continue home atorvastatin DVT proph: Lovenox SQ, SCDs Dispo: discharge to home Notes For Next Care Provider none Medication Changes From Visit added cefpodoxime Admission HPI Per Admitting Provider The patient is a 74-year-old female with a past medical history including asthma, right breast cancer, diabetes mellitus type 2, hypertension, dyslipidemia, degenerative joint disease,, migraine without aura, and history of pyelonephritis. The patient presents to the emergency department with 4 days of significant fevers, chills and sweats over the past 4 days, and worsened especially over the evening last night. She does report that her symptoms are similar to when she had pyelonephritis several years ago. Discharge Exam Constitutional WD/WN, vitals as above Neck trachea midline, no thyromegaly Respiratory normal respiratory effort, lungs clear to auscultation Cardiovascular RRR, no murmur, no edema Gastrointestinal (Abdomen) normal bowel sounds, soft, nontender, no hepatosplenomegaly Musculoskeletal Extremities: extremities normal to inspection; no cyanosis and no clubbing Skin no rashes, warm and dry Neurologic moves all extremities and awake; no focal motor deficits Psychiatric A+Ox3, euthymic affect Lymphatic no lymphedema Discharge Plan Discharge Items Patient Disposition: Home - Self-Care Reason For Visit: SEPSIS, ELEVATED TROPONIN Discharge Diagnosis: E. coli septicemia and UTI Acute kidney injury Condition on Discharge: Good Activity: As commented below Lifting: Gradually increase as tolerated Bathing: No limitations Exercise/Sports: Gradually increase as tolerated Driving/Machine Use: No limitations Non-emergency contact: Primary Care Provider Call non-emergency contact if: you have any medication questions, your symptoms worsen and your temperature is above 101 Follow-up/Referrals: Arianna Luis CRNP [Primary Care Provider] - (Follow-up within 1-2 weeks.) Diet: Carb Consistent or DM2 and Heart Healthy Addtl Attending Provider Instructions: Please finish out a course of antibiotics for your infection for 6 more days with cefpodoxime 200 mg twice a day. Pending Studies at Discharge: No Stand-Alone Forms: My [employer], Smoking Cessation Medications and DC Order Prescriptions: New cefpodoxime 200 mg tablet 200 mg PO BID Qty: 12 0RF Rx Instructions: must administer with a meal/food Continued calcium carbonate-vitamin D3 600 mg(1,500mg) -200 unit tablet 1 tab PO BID verapamil 120 mg tablet extended release 240 mg PO BID Qty: 360 1RF atorvastatin 10 mg tablet 10 mg PO QPM Qty: 90 1RF celecoxib 200 mg capsule 200 mg PO BID Qty: 180 1RF albuterol sulfate 90 mcg/actuation HFA aerosol inhaler 2 puff inhalation Q6H PRN (Reason: shortness of breath or wheezing) Qty: 8.5 5RF Arnuity Ellipta 100 mcg/actuation blister with device 1 inh inhalation DAILY Qty: 90 3RF epinephrine [EpiPen] 0.3 mg/0.3 mL auto-injector 0.3 mg IM ONCE PRN (Reason: anaphylaxis) Qty: 1 0RF metformin 500 mg tablet extended release 24 hr 500 mg PO BID Ozempic 0.25 mg or 0.5 mg (2 mg/3 mL) pen injector 0.5 mg subcut WK Patient Comments: Injected on Tuesdays Rx Instructions: Wednesday venlafaxine 75 mg tablet 112.5 mg PO BID Discharge Orders: Discharge Order (Routine); Ordered 06/12/25 Ordered By: Ruby Guerrero/Other Patient Handouts: High Blood Sugar (Hyperglycemia), Hypoglycemia (Low Blood Sugar), Managing Type 2 Diabetes, Diabetes: Meal Planning Admission Data Admit Date/Time: 06/09/25 13:25 Attending Provider: Ruby Rodriguez Admit Provider: Cleve Soriano Primary Care Provider: Arianna Luis Other Providers: Cleve Soriano Hospital Stay Data Consultations 06/09/25 12:57 ED Decision to Admit Stat Pending Results Patient Have Any Pending Studies at Discharge: No Discharge Instructions Given to Patient (Per Discharging Provider) Please finish out a course of antibiotics for your infection for 6 more days with cefpodoxime 200 mg twice a day. Total Time Total Time Spent Total Time Spent (In Minutes): 35 min Total Time Includes: Examination of the Patient, Discharge Planning and Medication Reconciliation Coding Level of Care Code 02997 INP/OBS DISCH >30 MIN Diagnoses Sepsis A41.9 Acute UTI (urinary tract infection) N39.0 Bacteremia R78.81 Elevated troponin R79.89
== END 2025-06-12 10:33 | disposition home or self-care (01) | DRG 872 ==
LOC: ED 10:14 → 4W 13:25 → SUATTDRO 13:25 → 4W 14:58 → 3N 06-11 12:44